=== PATIENT | male | born 1950 | race Two or more races ===

== ENCOUNTER 2025-09-08 08:24 | Inpatient (IN) | payer MEDICARE, MEDICAID ==
[2025-09-08] VITALS (10 sets, daily range): BP systolic 106; BP diastolic 32; PULSE 74–108; RESP 13–25; TEMP 98.3; O2SAT 94–98
[~2025-09-08] VITALS: Ht 175.3 cm; Wt 95.3 kg
--- NOTE | 2025-09-08 09:09 | ED.PDOC ---
SOB-HPI HPI Comments Mr. Ruiz is a 74 year old male with PMhx of hypertension, who presents today BIBA due to a syncopal episode at home. The patient states he woke up to go bathroom this morning when he states he had onset of dizziness, chills, "saw orange," and subsequently fell. He states he was conscious during this and did not hit his head. He states that for the last 5 weeks he has been symptoms including weakness, productive cough, progressively worsening shortness of breath on minimal exertion, orthopnea, anosmia, decreased appetite/fluid intake, and sharp chest wall bilateral chest wall pain described as sharp, non radiating, 7/10 intensity, aggravated by coughing and taking deep breaths.He denies loss of consciousness, head trauma, chest pain, abdominal pain, nausea, vomiting, abdominal pain, peripheral edema, and palpitations. Per EMS, on scene the patient was responsive, afebrile, tachycardic, and saturating 84% on RA for which he was started on 4L NC O2. On initial evaluation, the patient seems well while on NC, afebrile, tachycardic, saturating 87% on RA and 93% on 4L O2 NC. Chief Complaint: Syncope Time Seen by MD: 08:45 Information Source: Patient, Spouse Mode of Arrival: EMS Severity: Moderate Timing: Weeks Duration: Since onset Context: With Light Exertion PE Risk Factors: None History of: Recent URI Prehospital treatment: 12 Lead EKG, Oxygen Modifying Factors: Exertion Associated Signs and Symptoms: Cough, Nasal Congestion, Chest Pain Quality: Sharp Radiation: No Radiation Location: Chest (R), Chest (L) If cough with SOB: Productive Past Medical History PAST MEDICAL HISTORY: HTN Surgical History (Other): Shoulder surgery Family History Family History: Reviewed,noncontributory to illness Social History Smoker: Quit Less Than 1 Year (Patient states he smoked a pack a day for 50 years with cessation in April ) Alcohol: Denies ETOH Use Drugs: Denies Drug Use Lives In: Home Constitutional: reports: fatigue; denies: chills, diaphoresis, fever, malaise, sweats, weakness EENTM: reports: nasal discharge, nose congestion, others ([place] vision ); denies: blurred vision, double vision, mouth pain Respiratory: reports: cough, orthopnea, SOB at rest, SOB with excertion; denies: hemoptysis Cardiovascular: reports: syncope; denies: chest pain, dizzy spells, diaphoresis, Dyspnea on exertion, edema, irregular heart beat, left arm pain, lightheadedness, palpitations Gastrointestinal: reports: poor appetite, poor fluid intake; denies: abdomen distended, abdominal pain, blood streaked bowels, constipated, diarrhea, hematemesis, melena, nausea, rectal bleeding, vomiting Genitourinary: denies: burning, dysuria, flank pain, frequency, hematuria, incontinence, pain, urgency Neurological: denies: dizziness, fainting, headache, numbness, paresthesia, pre-existing deficit, seizure, weakness Musculoskeletal: reports: others (Chest wall pain ); denies: back pain, joint pain, joint swelling, muscle pain, muscle stiffness, neck pain Integumetry: denies: bruises, laceration, lesions, lumps, rash, wounds Physical Exam General Appearance: Mild Distress, Obese HEENT: Normal ENT Inspection, PERRL/EOMI, Pharynx Normal Neck: Full Range of Motion, Non-Tender, Normal Inspection Respiratory: Other ( Bilateral chest expansion, diffuse pain on palpation of chest wall mainly on sides, vesicular murmurs present in almost all lung loo, minor rales in bilateral lower loo ) Cardiovascular: No Edema, No Murmur, Tachycardia, Other (Peripheral pulses are present) Breast Exam: Deferred Gastrointestinal: Non Tender, Normal Bowel Sounds, Soft Genitalia: Deferred Pelvic: Deferred Rectal: Deferred Extremities: Normal capillary refill, Normal inspection, Normal range of motion, Non-tender, No pedal edema Neurologic: Alert, Normal Affect, Normal Mood Cerebellar Function: NOT DONE Reflexes: NOT DONE Skin: Normal Color Peripheral Pulses: 3+ dorsalis pedis (R), 3+ dorsalis pedis (L) Lymphatic: Other (No cervical adenopathy) Was a procedure done? Was a procedure done?: No Differential Dx Differential Diagnosis: Bronchitis, CHF, COPD, Myocardial infarction, Pneumonia, Pulmonary Embolism, Respiratory Distress Comments Syncope, sepsis, viral syndrome X-Ray, Labs, Meds, VS Vital Signs Date Time Temp Pulse Resp B/P (MAP) Pulse Ox O2 Delivery O2 Flow Rate FiO2 09/08/25 10:00 100 30 106/32 (56) 95 09/08/25 08:45 108 25 94 Nasal Cannula* 4 36 09/08/25 08:45 98.3 108 24 132/54 (80) 95 98.3 09/08/25 08:35 98.0 110 18 137/72 93 98.0 09/08/25 08:26 108 Lab Test 09/08/25 09:48 09/08/25 09:33 09/08/25 08:57 09/08/25 08:51 Range/Units Troponin I High Sensitivity 86 *H 69 *H </=54 ng/L POC Glucose 115 H 70-106 mg/dl Influenza Type A Antigen Pending Influenza Type B Antigen Pending SARS-CoV-2 Antigen (Rapid) Pending White Blood Count 11.9 H 4.4-10.8 10^3/uL Red Blood Count 4.63 4.5-5.90 10^6/uL Hemoglobin 15.0 13.5-17.5 g/dL Hematocrit 43.0 41.0-53.0 % Mean Corpuscular Volume 92.8 80.0-100.0 fL Mean Corpuscular Hemoglobin 32.5 H 28.0-32.0 pg Mean Corpuscular Hemoglobin Concent 35.0 32.0-36.0 g/dL Red Cell Distribution Width 14.0 11.8-14.3 % Platelet Count 178 140-450 10^3/uL Mean Platelet Volume 7.3 6.9-10.8 fL Neutrophils (%) (Auto) 73.4 37.0-80.0 % Lymphocytes (%) (Auto) 10.7 10.0-50.0 % Monocytes (%) (Auto) 5.5 0.0-12.0 % Eosinophils (%) (Auto) 9.5 H 0.0-7.0 % Basophils (%) (Auto) 0.9 0.0-2.0 % Neutrophils # (Auto) 8.7 H 1.6-8.6 10 ^3/uL Lymphocytes # (Auto) 1.3 0.4-5.4 10 ^3/uL Monocytes # (Auto) 0.6 0-1.3 10 ^3/uL Eosinophils # (Auto) 1.1 H 0-0.8 10 ^3/uL Basophils # (Auto) 0.1 0-0.2 10 ^3/uL Nucleated Red Blood Cells 0.2 % Sodium Level 145 136-145 mmol/L Potassium Level 3.3 L 3.5-5.1 mmol/L Chloride Level 101 98-107 mmol/L Carbon Dioxide Level 30 20-31 mmol/L Anion Gap 14 5-15 Blood Urea Nitrogen 32 H 9-23 mg/dL Creatinine 1.67 H 0.700-1.30 mg/dL Glomerular Filtration Rate Calc 43 >90 mL/min BUN/Creatinine Ratio 19.2 10.0-20.0 Serum Glucose 109 H 74-106 mg/dL Lactic Acid Level 2.0 0.4-2.0 mmol/L Calcium Level 12.9 H 8.7-10.4 mg/dL B-Type Natriuretic Peptide 74.31 0-100 pg/mL Current Medications Medications (Trade) Dose Ordered Sig/Keyana Route Start Time Stop Time Status Last Admin Sodium Chloride 500 ml @ 500 mls/hr Q1H ONCE IV 09/08/25 10:15 09/08/25 11:14 09/08/25 10:29 Ceftriaxone Sodium 50 ml @ 100 mls/hr ONCE ONCE IV 09/08/25 10:15 09/08/25 10:44 09/08/25 10:29 Potassium Chloride (Klor-Con Tablet) 20 meq ONCE ONCE PO 09/08/25 10:15 09/08/25 10:16 DC 09/08/25 10:29 Acetaminophen/ Hydrocodone Bitart (Raymond 5/325MG Tab) 1 tab ONCE ONCE PO 09/08/25 10:30 09/08/25 10:31 DC 09/08/25 10:31 Time of 1ST Reevaluation: 10:07 Reevaluation 1ST: Unchanged Patient Education/Counseling: Diagnosis, Treatment Family Education/Counseling: Diagnosis, Treatment Comments The patient presents today due to a syncopal episode with additional complaint of respiratory symptoms for 5 weeks On initial evaluation the patient is afebrile, tachycardic, tachypneic, saturating 87% on RA and 94% on 4L O2 NC Physical exam is positive for diffuse pain on chest wall palpation, mainly concentrated along bilateral sides, and mild rales on ausculation of bilateral lower lung loo CBC significant for leukocytosis with eosinophilia, BMP shows mild hypokalemia at 3.3 for which 20 mEq PO potassium was given, and creatinine 1.67 Initial troponins are 69, BNP is 74 Lactic acid is 2 Chest xray shows no acute intrapulmonary process Head CT has been ordered due to recent fall EKG shows sinus tachycardia, with minor ST depression in V4,5, and 6, with prolonged QTc of 653 Acetaminophen 650 mg PO was given due to pain and the patient was started on Ceftriaxone 1 g IV and Azithromycin 500 mg IV (which was subsequently DC'd due to prolonged QTc), and NS 500 cc bolus was given On reevaluation, the patient states he feels well on 4L O2 NC The patient will be admitted for further work up and monitoring. SEPSIS Sepsis Screen Date sepsis recognized/suspect: Sep 08, 2025 Time Sepsis recognized/suspect: 827 Recent Procedure: No On Antibiotic Therapy: No Respiratory Rate >20: No Heart Rate >90: Yes Temp<36 C (96.8 F) or >38.3 C: No SBP <90 or MAP <65 mmHG: No New Acute Mental Status Change: No Is the patient on CPAP, BIPAP,: No Physician Orders Electrocardigram (09/08/25 08:29) Urinalysis (09/08/25 08:39) Chest Portable (09/08/25 08:39) Head Without Contrast (09/08/25 08:39) Electrocardigram (09/08/25 08:39) Electrocardigram (09/08/25 09:39) Electrocardigram (09/08/25 11:39) Troponin-I Hs (09/08/25 11:39) Blood Culture (09/08/25 08:53) Covid19 Antigen Sophy (09/08/25 ) Rapid Influenza A&B (09/08/25 08:53) Sodium Chloride 0.9% (09/08/25 10:15) Ceftriaxone 1gm/50ml (Rocephin) (09/08/25 10:15) Azithromycin 500mg/ 250ml (Zithromax 50 (09/08/25 10:15) Vital Signs Date Time Temp Pulse Resp B/P (MAP) Pulse Ox O2 Delivery O2 Flow Rate FiO2 09/08/25 10:00 100 30 106/32 (56) 95 09/08/25 08:45 108 25 94 Nasal Cannula* 4 36 09/08/25 08:45 98.3 108 24 132/54 (80) 95 98.3 09/08/25 08:35 98.0 110 18 137/72 93 98.0 09/08/25 08:26 108 Laboratory Tests Test 09/08/25 08:51 Lactic Acid Level 2.0 mmol/L (0.4-2.0) White Blood Count 11.9 10^3/uL (4.4-10.8) H Medications Medications Dose Ordered Sig/Keyana Route Start Time Stop Time Status Last Admin Dose Admin Acetaminophen/ Hydrocodone Bitart 1 tab ONCE ONCE PO 09/08/25 10:30 09/08/25 10:31 DC 09/08/25 10:31 Ceftriaxone Sodium 50 ml @ 100 mls/hr ONCE ONCE IV 09/08/25 10:15 09/08/25 10:44 09/08/25 10:29 Potassium Chloride 20 meq ONCE ONCE PO 09/08/25 10:15 09/08/25 10:16 DC 09/08/25 10:29 Sodium Chloride 500 ml @ 500 mls/hr Q1H ONCE IV 09/08/25 10:15 09/08/25 11:14 09/08/25 10:29 Departure 1 Departure Time of Disposition: 10:17 Impression: Primary Impression: Syncope Additional Impression: Acute hypoxic respiratory failure Disposition: 30 STILL A PATIENT Admit to: Med Surg Condition: Stable Critical Care Note Critical Care Time?: No Stability Stability form required: No Heart Score Heart Score: Heart Score Response (Comments) Value History Slightly Suspicious 0 EKG Repolarization Disturb 1 Age >65 2 Risk Factors 1 or 2 risk factors 1 Troponin 1-2 x's Normal limit 1 Total 5 ELIDIA GRIGGS RESIDENT Sep 08, 2025 09:09
[2025-09-08 09:20] LABS: Hematocrit 43.0 % (41.0-53.0); Hemoglobin 15.0 g/dL (13.5-17.5); Mean Corpuscular Hemoglobin 32.5 pg (28.0-32.0); Mean Corpuscular Volume 92.8 fL (80.0-100.0); Nucleated Red Blood Cells % 0.2 %
--- NOTE | 2025-09-08 09:28 | DVH ---
XY CHEST PORTABLE, HISTORY: syncope COMPARISON: XR CHEST 2 VIEWS on DOS: 08/16/25 XR CHEST 2 VIEWS on DOS: 08/16/25 TECHNICAL DATA: 1 view of the chest was obtained. FINDINGS: Lines and tubes: None Cardiomediastinal silhouette: Prominent Pulmonary vasculature: normal Lung expansion: low Lung airspace: normal Lung interstitium: normal Pleura: normal Pneumothorax: no Bones: Unremarkable Other: no IMPRESSION: No acute intrathoracic abnormality.
[2025-09-08 09:29] LABS: Carbon Dioxide 30 mmol/L (20-31)
[2025-09-08 09:35] LABS: BUN/Creatinine Ratio 19.2 (10.0-20.0); Blood Urea Nitrogen 32 mg/dL (9-23); Calcium 12.9 mg/dL (8.7-10.4); Glucose 109 mg/dL (74-106); Potassium 3.3 mmol/L (3.5-5.1); Sodium 145 mmol/L (136-145)
[2025-09-08] MEDS: ACETAMINOPHEN 325 MG TAB PO ONE (09:45)
[2025-09-08 09:47] LABS: Anion Gap 14 (5-15); Chloride 101 mmol/L (98-107)
[2025-09-08] MEDS ORDERED: AZITHROMYCIN 500MG/250ML 250 ML IV ONE (10:15)
[2025-09-08] MEDS: POTASSIUM CHL 20 Meq TABLET PO ONE (10:29)
[2025-09-08] MEDS: SODIUM CHLORIDE 0.9% 500 ML IV ONE ×2 (10:29→14:52)
[2025-09-08] MEDS: HYDROcodone-ACET 5/325MG TAB PO ONE (10:31)
[2025-09-08] MEDS ORDERED: ACETAMINOPHEN 325 MG TAB PO PRN (11:00)
--- NOTE | 2025-09-08 11:32 | DVHHPRES ---
History of Present Illness Resident Creating Document: NEGRA AjERENE History of Present Illness This is a 74-year-old male with past medical history of hypertension, who presented to the ED with chief complaint of syncopal episode that occurred this morning at home. The patient reports that in the past two months has been having shortness of breath associated with cough with a lot of phlegm and sputum production whitish in color. The patient reports that has been visit the urgent care in July 27 and posteriorly in July was diagnosed with a bronchitis and sent home with oral antibiotics and steroids. Today, patient reports that he woke up in the morning went to the bathroom and while urinating he started feeling weak, shaking and his vision started looking everything orange. Shortly after that he passed out but recovered consciousness in less than 30 seconds and was able to recall the entire event. Patient was alert and oriented after the incident. Patient denied any hot sensation in the body, diaphoresis, nausea sensation, palpitations or any other symptoms prior to the syncopal episode. Patient states that this was the 1st time that he has such event. Patient states that he was supposed to see his wire web worker for the 1st time ( Dr. Rivero). The patient also reports that he has been feeling slight chest pain that comes and goes since June but denies any chest pain or discomfort at this time. Upon arrival to the ED, WBC was 11.9, hypokalemia and ISABEL with a creatinine of 1.67. EKG showed sinus tachycardia with slight ST-depression in V4, V5 and V6. Troponins came back slightly elevated at 69-89. We will order an echocardiogram to further evaluate LVEF since the patient states that has no past medical history of CHF or arrhythmias. Patient is currently on 3 L of oxygen through nasal cannula saturating 94%. (no oxygen requirement at home). Upon my examination, there is no wheezes or significant crackles on auscultation . Bilateral lower extremity have no edema at this time. We will admit the patient for further assessment and management. Home medications: Lisinopril 30 mg daily, hydrochlorothiazide 50 mg daily, potassium supplements Surgical history: Rotator cuff surgery in 2009 and tonsillectomy in 195 Social history: Denies alcohol consumption, drug intake. Patient does report that he used to smoke one pack of cigarettes a day for 50 years but quit on April of 2025 PCP: Dr. Rosales Cardiovascular: HTN Past Surgical History: Other (Rotator cuff surgery in the left shoulder in 2010), Tonsillectomy Family History: None Smoke: Quit ALCOHOL: none Drugs: None Lives: with Family Domestic Violence: Neg Review of Systems Constitutional: Yes: Weakness, Malaise; No: Fever, Chills, Sweats, Other Eyes: No: Pain, Vision change, Conjunctivae inflammation, Eyelid inflammation, Other, Redness ENT: No: Ear pain, Ear discharge, Nose pain, Nose discharge, Nose congestion, Mouth pain, Mouth swelling, Throat pain, Throat swelling, Other Respiratory: Cough, Dry, Shortness of breath, SOB with excertion, Sputum; No: Wheezing, Hemoptysis, Pleuritic Pain, Wheezing, Other Cardiovascular: No: Chest Pain, Palpitations, Orthopnea, Paroxysmal Noc. Dyspnea, Edema, Lt Headedness, Other Gastrointestinal: No: Nausea, Vomiting, Abdominal Pain, Diarrhea, Constipation, Melena, Hematochezia, Other Genitourinary: No Dysuria, No Frequency, No Incontinence, No Hematuria, No Retention, No Other Musculoskeletal: No: other, neck pain, shoulder pain, arm pain, back pain, hand pain, leg pain, foot pain Skin: No: Rash, Lesions, Jaundice, Bruising, Other Neurological: No: Weakness, Numbness, Incoordination, Change in speech, Confusion, Seizures, Other Allergies: Coded Allergies: NO KNOWN ALLERGIES (Unverified , 09/08/25) Medications Current Medications Medications Dose Ordered Sig/Keyana Route Start Time Stop Time Status Last Admin Dose Admin Acetaminophen 650 mg Q6HP PRN PO 09/08/25 11:00 UNV Acetaminophen/ Hydrocodone Bitart 1 tab Q4HP PRN PO 09/08/25 11:00 UNV Enoxaparin Sodium 40 mg DAILY SC 09/09/25 10:00 UNV Doxycycline Hyclate 100 ml @ 50 mls/hr BID IV 09/08/25 22:00 UNV Ceftriaxone Sodium 50 ml @ 100 mls/hr DAILY IV 09/09/25 10:00 UNV Guaifenesin/ Dextromethorphan 10 ml DAILY PO 09/08/25 13:00 UNV Levalbuterol HCl 1.25 mg Q6HR NEB 09/08/25 12:00 UNV Ipratropium [place] 0.5 mg Q6HR NEB 09/08/25 12:00 UNV Exam Vital Signs Vital Signs Date Time Temp Pulse Resp B/P (MAP) Pulse Ox O2 Delivery O2 Flow Rate FiO2 09/08/25 10:00 100 30 106/32 (56) 95 09/08/25 08:45 Nasal Cannula* 4 36 09/08/25 08:45 98.3 98.3 General Appearance: Alert, Oriented X3, Cooperative, mild distress HEENT: Atraumatic, PERRLA, EOMI, Mucous membr. moist/pink Respiratory: Clear to auscultation, Normal air movement Cardiovascular: Regular rate, Normal S1, Normal S2, No murmurs Abdominal: Normal bowel sounds, Soft, No tenderness, No hepatospenomegaly, No masses Extremities: No clubbing, No cyanosis, No edema, Normal pulses, No tenderness/swelling Skin: No rashes, No breakdown, No significant lesion Neuro: Normal gait, Normal speech, Strength at 5/5 X4 ext, Normal tone, Sensation intact, Cranial nerves 3-12 NL, Reflexes 2+ Psych/Mental Status: Mental status NL, Mood NL Labs/Xrays Labs Test 09/08/25 09:48 09/08/25 09:33 09/08/25 08:57 09/08/25 08:51 Range/Units Troponin I High Sensitivity 86 *H </=54 ng/L POC Glucose 115 H 70-106 mg/dl White Blood Count 11.9 H 4.4-10.8 10^3/uL Red Blood Count 4.63 4.5-5.90 10^6/uL Hemoglobin 15.0 13.5-17.5 g/dL Hematocrit 43.0 41.0-53.0 % Mean Corpuscular Volume 92.8 80.0-100.0 fL Mean Corpuscular Hemoglobin 32.5 H 28.0-32.0 pg Mean Corpuscular Hemoglobin Concent 35.0 32.0-36.0 g/dL Red Cell Distribution Width 14.0 11.8-14.3 % Platelet Count 178 140-450 10^3/uL Mean Platelet Volume 7.3 6.9-10.8 fL Neutrophils (%) (Auto) 73.4 37.0-80.0 % Lymphocytes (%) (Auto) 10.7 10.0-50.0 % Monocytes (%) (Auto) 5.5 0.0-12.0 % Eosinophils (%) (Auto) 9.5 H 0.0-7.0 % Basophils (%) (Auto) 0.9 0.0-2.0 % Neutrophils # (Auto) 8.7 H 1.6-8.6 10 ^3/uL Lymphocytes # (Auto) 1.3 0.4-5.4 10 ^3/uL Monocytes # (Auto) 0.6 0-1.3 10 ^3/uL Eosinophils # (Auto) 1.1 H 0-0.8 10 ^3/uL Basophils # (Auto) 0.1 0-0.2 10 ^3/uL Nucleated Red Blood Cells 0.2 % Sodium Level 145 136-145 mmol/L Potassium Level 3.3 L 3.5-5.1 mmol/L Chloride Level 101 98-107 mmol/L Carbon Dioxide Level 30 20-31 mmol/L Anion Gap 14 5-15 Blood Urea Nitrogen 32 H 9-23 mg/dL Creatinine 1.67 H 0.700-1.30 mg/dL Glomerular Filtration Rate Calc 43 >90 mL/min BUN/Creatinine Ratio 19.2 10.0-20.0 Serum Glucose 109 H 74-106 mg/dL Lactic Acid Level 2.0 0.4-2.0 mmol/L Calcium Level 12.9 H 8.7-10.4 mg/dL B-Type Natriuretic Peptide 74.31 0-100 pg/mL SEPSIS Sepsis Screen Date sepsis recognized/suspect: Sep 08, 2025 Time Sepsis recognized/suspect: 0845 Recent Procedure: No On Antibiotic Therapy: Yes Respiratory Rate >20: Yes Heart Rate >90: Yes Temp<36 C (96.8 F) or >38.3 C: No SBP <90 or MAP <65 mmHG: No New Acute Mental Status Change: No Is the patient on CPAP, BIPAP,: No Physician Orders Electrocardigram (09/08/25 08:29) Urinalysis (09/08/25 08:39) Chest Portable (09/08/25 08:39) Head Without Contrast (09/08/25 08:39) Electrocardigram (09/08/25 08:39) Electrocardigram (09/08/25 09:39) Electrocardigram (09/08/25 11:39) Troponin-I Hs (09/08/25 11:39) Blood Culture (09/08/25 08:53) Covid19 Antigen Sophy (09/08/25 ) Rapid Influenza A&B (09/08/25 08:53) Sodium Chloride 0.9% (09/08/25 10:15) Admit (09/08/25 10:57) Code Status (09/08/25 10:57) Vital Signs .PER UNIT PROTOCOL (09/08/25 10:57) Review Orders With Adm. (09/08/25 10:57) Encourage Activity As Tolerate (09/08/25 10:57) Regular Diet (09/08/25 Lunch) Pulse Oxymetry Assessment - 2 (09/08/25 10:57) Acetaminophen Tablet (Tylenol Tablet) (09/08/25 11:00) Notify Md Of Changes From Base (09/08/25 10:57) Advance Directive (09/08/25 10:57) Urinalysis (09/08/25 10:57) Complete Blood Count (09/09/25 04:00) Lipid Panel (09/08/25 10:57) Patient Condition (09/08/25 10:57) Allergies (09/08/25 10:57) Hydrocodone-Acet 5/325mg Tab ([place] 5/32 (09/08/25 11:00) Drug Screen (09/08/25 10:57) Hemoglobin A1c (09/08/25 10:57) Enoxaparin Sodium (Lovenox) (09/09/25 10:00) Electrocardigram (09/08/25 10:57) Comprehensive Metabolic Panel (09/09/25 04:00) Echo 2d Mode Cardiac Dop (09/08/25 10:57) Communication Order (09/08/25 11:04) Doxycycline 100mg/100ml (Vibramycin) (09/08/25 22:00) Ceftriaxone 1gm/50ml (Rocephin) (09/09/25 10:00) Throat Lozenges (Cepastat Lozenges) (09/08/25 11:15) Guaifenesin-Dextromet Liquid (Robitussin (09/08/25 13:00) Levalbuterol Hcl (Xopenex Medneb) (09/08/25 12:00) Ipratropium Medneb (Atrovent Medneb) (09/08/25 12:00) Vital Signs Date Time Temp Pulse Resp B/P (MAP) Pulse Ox O2 Delivery O2 Flow Rate FiO2 09/08/25 10:00 100 30 106/32 (56) 95 09/08/25 08:45 108 25 94 Nasal Cannula* 4 36 09/08/25 08:45 98.3 108 24 132/54 (80) 95 98.3 09/08/25 08:35 98.0 110 18 137/72 93 98.0 09/08/25 08:26 108 Laboratory Tests Test 09/08/25 08:51 Lactic Acid Level 2.0 mmol/L (0.4-2.0) White Blood Count 11.9 10^3/uL (4.4-10.8) H Medications Medications Dose Ordered Sig/Keyana Route Start Time Stop Time Status Last Admin Dose Admin Acetaminophen/ Hydrocodone Bitart 1 tab ONCE ONCE PO 09/08/25 10:30 09/08/25 10:31 DC 09/08/25 10:31 1 TAB Ceftriaxone Sodium 50 ml @ 100 mls/hr ONCE ONCE IV 09/08/25 10:15 09/08/25 10:44 DC 09/08/25 10:29 100 MLS/HR Potassium Chloride 20 meq ONCE ONCE PO 09/08/25 10:15 09/08/25 10:16 DC 09/08/25 10:29 20 MEQ Sodium Chloride 500 ml @ 500 mls/hr Q1H ONCE IV 09/08/25 10:15 09/08/25 11:14 09/08/25 10:29 500 MLS/HR Assessment/Plan Assessment/Plan Assessment/plan Acute hypoxic respiratory failure likely due to COPD exacerbation Possible Gram-positive/Gram-negative bacterial pneumonia Possible viral pneumonia Possible new onset Systolic/diastolic heart failure NSTEMI likely type 2/ 1? R/O PE/DVT Plan -initial EKG showed sinus tachycardia with slight ST-depression in V4, V5 and V6 -initial troponins were slightly elevated at 69-89 -Ordered echocardiogram -initial chest x-ray is grossly clear no significant consolidations at this time -start IV doxycycline -albuterol/ipratropium med nebs q.6 schedule -guaifenesin dextromethorphan daily, due to chronic cough -COVID and influenza still pending -cardiology consult -Ordered D-Dimer Goals of care discussed with the patient and at bedside, full code Plan discussed with Dr. Balderas Plan discussed with: Patient, Spouse My Orders Orders - GLORIA CHRISTINE Procedure Category Date Status Time Admit ADMIT 09/08/25 Transmitted 10:57 Code Status CODE 09/08/25 Transmitted 10:57 Vital Signs [facility] 09/08/25 In Process 10:57 Review Orders With YANA 09/08/25 In Process Adm. 10:57 Encourage Activity As YANA 09/08/25 In Process Tolerate 10:57 Regular Diet DIET 09/08/25 Transmitted Lunch Pulse Oxymetry RT 09/08/25 Transmitted Assessment - 2 10:57 Acetaminophen Tablet PHA 09/08/25 Logged (Tylenol Tablet) 11:00 Notify Of Changes [facility] 09/08/25 In Process From Base 10:57 Advance Directive [facility] 09/08/25 In Process 10:57 Urinalysis LAB 09/08/25 Logged 10:57 Complete Blood Count LAB 09/09/25 Verified 04:00 Lipid Panel LAB 09/08/25 In Process 10:57 Patient Condition ORDERS 09/08/25 Transmitted 10:57 Allergies [facility] 09/08/25 In Process 10:57 Hydrocodone-Acet PHA 09/08/25 Logged 5/325mg Tab ([place] 11:00 Drug Screen LAB 09/08/25 Logged 10:57 Hemoglobin A1c LAB 09/08/25 Logged 10:57 Enoxaparin Sodium PHA 09/09/25 Logged (Lovenox) 10:00 Electrocardigram EKG 09/08/25 Logged 10:57 Comprehensive LAB 09/09/25 Verified Metabolic Panel 04:00 Echo 2d Mode Cardiac US 09/08/25 Logged DOP 10:57 Communication Order ORDERS 09/08/25 Transmitted 11:04 Doxycycline PHA 09/08/25 Logged 100mg/100ml 22:00 Ceftriaxone 1gm/50ml PHA 09/09/25 Logged (Rocephin) 10:00 Throat Lozenges PHA 09/08/25 Logged (Cepastat Lozenges) 11:15 Guaifenesin-Dextromet PHA 09/08/25 Logged Liquid (Robitussin 13:00 Levalbuterol Hcl PHA 09/08/25 Transmitted (Xopenex Medneb) 12:00 Ipratropium Medneb PHA 09/08/25 Transmitted (Atrovent Medneb) 12:00 Date of Service: Sep 08, 2025 Billing Provider: RUPERTO BALDERAS MD Common Visit Codes: [id number] INP/OBS CARE (HIGH) Secondary Visit Codes: [id number] CARE PLAN 30 MINUTES GLORIA CHRISTINE RESIDENT Sep 08, 2025 11:32
[2025-09-08] MEDS: THROAT LOZENGES(CEPASTAT) MT ONE (11:43)
[2025-09-08] MEDS: DOXYCYCLINE 100MG/100ML 100 ML IV SCH (11:43)
[2025-09-08 11:52] LABS: COVID19 ANTIGEN SOFIA FIA NEGATIVE (NEGATIVE)
[2025-09-08] MEDS: LEVALBUTEROL HCL 1.25 MG/3 ML NEB NEB SCH (12:00)
[2025-09-08] MEDS: IPRATROPIUM BROM 0.5 MG/2.5ML INH SOL NEB SCH (12:00)
--- NOTE | 2025-09-08 12:02 | DVHSR ---
APPROVED REPORT EXAM: Two-dimensional and M-mode echocardiogram with Doppler and color Doppler. Blood Pressure: 106/32 mmHg INDICATION possible new onset CHF, eval LVEF RISK FACTORS Height: 69, Weight: 210 DIMENSIONS LVDd 5.8 (3.8-5.7cm) LA (2D) 4.5 (1.9-4.0cm) Aortic Root 4.5 (2.0-3.7cm) LVDs 4.1 (2.5-4.0cm) LA (MM) (1.9-4.0cm) Aortic Cusp Exc (1.5-2.0cm) EF (%) 55.0 (55-70%) Rt. Atrium (1.9-4.0cm) Asc. Aorta cm Mitral Valve Mitral Mitral Stenosis E/A ratio 0.0 2D MVA cm2 Aortic Valve Aortic Valve Aortic Stenosis V1 1.63m/s AO Mean GR. 10mmHg V2 2.14m/s AO Peak GR. 18mmHg LVOT Diameter 2.4 (1.8-2.4cm) Doppler MARIE 3.44cm2 AI P 1/2 Time 280.44ms Pulmonic Valve V2 1.31m/s Other Information Technically limited study due to body habitus, patient position and patient rhythm. Conclusion lvef 60% normal lvef hypokinetic lateral wall normal atria moderate aoritc regurg, pressure half time is closer to severe, clinical correlate or consider joselyn if indicated normal pericardium
--- NOTE | 2025-09-08 12:19 | DVH ---
CT HEAD WITHOUT CONTRAST Indication: syncope EXAM DATE: 09/08/2025 11:46 AM COMPARISON: None TECHNIQUE: CT of the head without intravenous contrast. RADIATION DOSE: CTDIvol: 69 mGy, DLP: 1366 mGy*cm FINDINGS: There is no intracranial hemorrhage. There is no extra-axial fluid, mass, mass effect or midline shift. The ventricles are midline and normal in size. Basilar cisterns are patent. There is mild global cerebral volume loss. Mild periventricular and subcortical white matter chronic microvascular ischemic changes. Mastoids well pneumatized. Right maxillary sinus disease and mucoperiosteal thickening.. Imaged portion of the orbits are unremarkable. IMPRESSION: No intracranial hemorrhage or mass effect. Mild global cerebral volume loss. Mild chronic microvascular ischemic changes. Right maxillary sinus disease.
[2025-09-08] MEDS ORDERED: guaiFENesin-DM 100/10mg/5ml SYR PO SCH (13:00)
--- NOTE | 2025-09-08 14:01 | DVHCONRES ---
Date Seen: Sep 08, 2025 Resident Creating Document: JAIDA GROSS RESIDENT Referring Physician dr Shaw Reason for Consultation NSTEMI History of Present Illness SAMMIE NAGEL is a 74-year-old male with past medical history of hypertension, who presented to the ED with chief complaint of syncopal episode that occurred this morning at home. The patient reports that in the past two months has been having shortness of breath associated with cough with a lot of phlegm and sputum production whitish in color. The patient reports that has been visit the urgent care in July 27 and posteriorly in July was diagnosed with a bronchitis and sent home with oral antibiotics and steroids. Today, patient reports that he woke up in the morning went to the bathroom and while urinating he started feeling weak, shaking and his vision started looking everything orange. Shortly after that he passed out but recovered consciousness in less than 30 seconds and was able to recall the entire event. Patient was alert and oriented after the incident. Patient denied any hot sensation in the body, diaphoresis, nausea sensation, palpitations or any other symptoms prior to the syncopal episode. Patient states that this was the 1st time that he has such event. Patient states that he was supposed to see his windchill administrator for the 1st time ( Dr. Rivero). The patient also reports that he has been feeling slight chest pain that comes and goes since June but denies any chest pain or discomfort at this time. Upon arrival to the ED, WBC was 11.9, hypokalemia and ISABEL with a creatinine of 1.67. EKG showed sinus tachycardia with slight ST-depression in V4, V5 and V6. Troponins came back slightly elevated at 69-89-123. Echocardiogram LVEF 60%, hypokinetic lateral wall, moderate AR. PMH: HTN, possible COPD PSH: Rotator cuff surgery, tonsillectomy Family history: Noncontributory Social history: Lives at home. Ex-smoker, denies alcohol and other drug abuse( Patient does report that he used to smoke one pack of cigarettes a day for 50 years but quit on April of 2025) Allergies: No known allergies Allergies: Coded Allergies: NO KNOWN ALLERGIES (Unverified , 09/08/25) Current Medications Current Medications Medications (Trade) Dose Ordered Sig/Keyana Route PRN Reason Start Time Stop Time Status Last Admin Acetaminophen (Tylenol Tablet) 650 mg Q6HP PRN PO PAIN SCALE 1-3 OR TEMP>100.4 09/08/25 11:00 Acetaminophen/ Hydrocodone Bitart ([place] 5/325MG Tab) 1 tab Q4HP PRN PO MODERATE PAIN (4-6 PAIN SCALE) 09/08/25 11:00 Enoxaparin Sodium (Lovenox) 40 mg DAILY SC 09/09/25 10:00 Doxycycline Hyclate 100 ml @ 50 mls/hr BID IV 09/08/25 11:38 09/08/25 11:43 Ceftriaxone Sodium 50 ml @ 100 mls/hr DAILY@0900 IV 09/09/25 09:00 Guaifenesin/ Dextromethorphan (Robitussin-Dm Liquid) 10 ml DAILY PO 09/08/25 13:00 Hold Levalbuterol HCl (Xopenex Medneb) 1.25 mg Q6HR NEB 09/08/25 12:00 09/08/25 13:35 Ipratropium [place] (Atrovent Medneb) 0.5 mg Q6HR NEB 09/08/25 12:00 09/08/25 13:36 Review of Systems Patient seen and examined at the bedside. Patient is currently reporting sh ortness of breath and mild chest pain, rest of ROS is negative Vital Signs Vital Signs Date Time Temp Pulse Resp B/P (MAP) Pulse Ox O2 Delivery O2 Flow Rate FiO2 09/08/25 13:48 93 24 96 09/08/25 12:00 139/54 (82) 09/08/25 11:20 98.3 4.0 36 98.3 09/08/25 11:19 Nasal Cannula Physical Exam Pt is lying on bed General Appearance: Alert, Oriented X3, Cooperative, Not in acute distress HEENT: Atraumatic, Mucous membranes moist/pink Respiratory: Clear to auscultation, Normal air movement, No added sounds Cardiovascular: Regular rate, Normal S1, Normal S2, No murmurs Abdominal: Active bowel sounds, Soft, no distention, no tenderness Extremities: No edema, Normal pulses, No tenderness/swelling Skin: No Significant rash, except past surgical scars Neuro: Normal speech, sensorimotor deficits none Psych/Mental Status: Mental status NL, Mood NL Nurse was there as softball player during examination Labs/Diagnostic Data Labs Test 09/08/25 13:21 09/08/25 12:07 09/08/25 09:48 09/08/25 09:33 Range/Units Troponin I High Sensitivity 123 *H </=54 ng/L POC Glucose 115 H 70-106 mg/dl Test 09/08/25 08:57 09/08/25 08:51 Range/Units Influenza Type A Antigen Negative Negative Influenza Type B Antigen Negative Negative SARS-CoV-2 Antigen (Rapid) Negative NEGATIVE White Blood Count 11.9 H 4.4-10.8 10^3/uL Red Blood Count 4.63 4.5-5.90 10^6/uL Hemoglobin 15.0 13.5-17.5 g/dL Hematocrit 43.0 41.0-53.0 % Mean Corpuscular Volume 92.8 80.0-100.0 fL Mean Corpuscular Hemoglobin 32.5 H 28.0-32.0 pg Mean Corpuscular Hemoglobin Concent 35.0 32.0-36.0 g/dL Red Cell Distribution Width 14.0 11.8-14.3 % Platelet Count 178 140-450 10^3/uL Mean Platelet Volume 7.3 6.9-10.8 fL Neutrophils (%) (Auto) 73.4 37.0-80.0 % Lymphocytes (%) (Auto) 10.7 10.0-50.0 % Monocytes (%) (Auto) 5.5 0.0-12.0 % Eosinophils (%) (Auto) 9.5 H 0.0-7.0 % Basophils (%) (Auto) 0.9 0.0-2.0 % Neutrophils # (Auto) 8.7 H 1.6-8.6 10 ^3/uL Lymphocytes # (Auto) 1.3 0.4-5.4 10 ^3/uL Monocytes # (Auto) 0.6 0-1.3 10 ^3/uL Eosinophils # (Auto) 1.1 H 0-0.8 10 ^3/uL Basophils # (Auto) 0.1 0-0.2 10 ^3/uL Nucleated Red Blood Cells 0.2 % Sodium Level 145 136-145 mmol/L Potassium Level 3.3 L 3.5-5.1 mmol/L Chloride Level 101 98-107 mmol/L Carbon Dioxide Level 30 20-31 mmol/L Anion Gap 14 5-15 Blood Urea Nitrogen 32 H 9-23 mg/dL Creatinine 1.67 H 0.700-1.30 mg/dL Glomerular Filtration Rate Calc 43 >90 mL/min BUN/Creatinine Ratio 19.2 10.0-20.0 Serum Glucose 109 H 74-106 mg/dL Hemoglobin A1c 5.5 <5.7 % A1C Lactic Acid Level 2.0 0.4-2.0 mmol/L Calcium Level 12.9 H 8.7-10.4 mg/dL B-Type Natriuretic Peptide 74.31 0-100 pg/mL Assessment NSTEMI likely type 2 Acute hypoxic respiratory failure Possible COPD exacerbation Possible G+/- PNA Ruled out structural heart disease Plan/recommendations We will continue with the following plan/recommendations (): Echocardiogram LVEF 60%, hypokinetic lateral wall, moderate AR EKG showed sinus tachycardia with slight ST-depression in V4, V5 and V6 [id number] Given risk factors and elevated troponins we will schedule with Cardiolite stress test on next availability DVT/PE PPX Rest of management as per primary team Case discussed with the Dr. Vora Plan discussed with: Patient Date of Service: Sep 08, 2025 Billing Provider: LYNNE BECKER Sr., MD Common Visit Codes: [id number] CARE 30-74 MIN JAIDA GROSS RESIDENT Sep 08, 2025 14:00
--- NOTE | 2025-09-08 15:12 | DVH ---
Bilateral lower extremity venous duplex Clinical History: RULE OUT DVT, ELEVATED D-DIMER Comparison: None Technique: Duplex Doppler evaluation of the deep venous systems of both lower extremities from the common femoral veins to the popliteal veins including color Doppler and spectral/pulsed waveform analysis was performed. Findings: RIGHT SIDE: The common femoral vein demonstrates appropriate compressibility and waveform variability. There is compressibility/patency of the great saphenous vein at the proximal thigh. The femoral vein demonstrates appropriate compressibility and waveform variability. The deep femoral vein demonstrates appropriate compressibility and waveform variability. The popliteal vein demonstrates appropriate compressibility and waveform variability. There is normal compressibility at the tibioperoneal trunk. LEFT SIDE: The common femoral vein demonstrates appropriate compressibility and waveform variability. There is compressibility/patency of the great saphenous vein at the proximal thigh. The femoral vein demonstrates appropriate compressibility and waveform variability. The deep femoral vein demonstrates appropriate compressibility and waveform variability. The popliteal vein demonstrates appropriate compressibility and waveform variability. There is normal compressibility at the tibioperoneal trunk. Impression: 1. No right or left femoropopliteal venous thrombosis. 2. Techs comments negative for DVT 3. Thrombus possibly seen in LLE SSV
[2025-09-08] MEDS: IOHEXOL 350 MG/ML 100ML IJ ONE (15:53)
[2025-09-08] MEDS: HYDROcodone-ACET 5/325MG TAB PO PRN (15:53)
[2025-09-08 16:41] LABS: Cholesterol 203 mg/dL (< 200); HDL Cholesterol 55 mg/dL (40-59); Triglycerides 181 mg/dL (< 150)
--- NOTE | 2025-09-08 16:54 | DVHINCON2 ---
Date of service: Sep 08, [address] Shaw Reason for Consultation NSTEMI History of Present Illness This is a 74-year-old male with a past medical history of hypertension, who presented to the ED with a complaint of syncopal episode that occurred this morning at home. The patient reports that in the past two months has been having shortness of breath associated with cough with a lot of phlegm and sputum production whitish in color. The patient reports that has been visit the urgent care on July 27 and posteriorly in July was diagnosed with a bronchitis and sent home with oral antibiotics and steroids. Today, patient reports that he woke up in the morning went to the bathroom and while urinating he started feeling weak, shaking and his vision started looking everything o range. Shortly after that he passed out but recovered consciousness in less than 30 seconds and was able to recall the entire event. Patient was alert and oriented after the incident. Patient denied any hot sensation in the body, diaphoresis, nausea sensation, palpitations or any other symptoms prior to the syncopal episode. Patient states that this was the 1st time that he has such event. Patient states that he was supposed to see his coupling machine operator for the 1st time (Dr. Rivero). The patient also reports that he has been feeling slight chest pain that comes and goes since June but denies any chest pain or discomfort at this time. Upon arrival to the ED, WBC was 11.9, hypokalemia and ISABEL with a creatinine of 1.67. EKG showed sinus tachycardia with slight ST- depression in V4, V5 and V6. Troponins came back slightly elevated at 69-89-123. Echocardiogram LVEF 60%, hypokinetic lateral wall, moderate AR. Patient was admitted to the hospital. I am asked to consult on this patient. Allergies: Coded Allergies: NO KNOWN ALLERGIES (Unverified , 09/08/25) Current Medications Current Medications Medications (Trade) Dose Ordered Sig/Keyana Route PRN Reason Start Time Stop Time Status Last Admin Acetaminophen (Tylenol Tablet) 650 mg Q6HP PRN PO PAIN SCALE 1-3 OR TEMP>100.4 09/08/25 11:00 Acetaminophen/ Hydrocodone Bitart ([place] 5/325MG Tab) 1 tab Q4HP PRN PO MODERATE PAIN (4-6 PAIN SCALE) 09/08/25 11:00 Enoxaparin Sodium (Lovenox) 40 mg DAILY SC 09/09/25 10:00 Doxycycline Hyclate 100 ml @ 50 mls/hr BID IV 09/08/25 11:38 09/08/25 11:43 Ceftriaxone Sodium 50 ml @ 100 mls/hr DAILY@0900 IV 09/09/25 09:00 Guaifenesin/ Dextromethorphan (Robitussin-Dm Liquid) 10 ml DAILY PO 09/08/25 13:00 Hold Levalbuterol HCl (Xopenex Medneb) 1.25 mg Q6HR NEB 09/08/25 12:00 09/08/25 13:35 Ipratropium [place] (Atrovent Medneb) 0.5 mg Q6HR NEB 09/08/25 12:00 09/08/25 13:36 Review of Systems Patient seen and examined at the bedside. Patient is currently reporting shortness of breath and mild chest pain, rest of ROS is negative Vital Signs Vital Signs Date Time Temp Pulse Resp B/P (MAP) Pulse Ox O2 Delivery O2 Flow Rate FiO2 09/08/25 13:48 93 24 96 09/08/25 12:00 139/54 (82) 09/08/25 11:20 98.3 4.0 36 98.3 09/08/25 11:19 Nasal Cannula Physical Exam GENERAL: Alert and oriented x 3. No acute distress. EYES: PERRL, EOMI. Anicteric. HENT: Moist mucous membranes. LUNGS: Clear to auscultation bilaterally. CARDIOVASCULAR: Regular rate and rhythm. ABDOMEN: Soft, nontender and nondistended. EXTREMITIES: No edema. NEUROLOGIC: No focal neurological deficits. SKIN: Warm, dry. Past surgical scars. Labs/Diagnostic Data Labs Test 09/08/25 13:21 09/08/25 12:07 09/08/25 09:48 09/08/25 09:33 Range/Units D-Dimer, Quantitative > 35.20 H 0.0-0.49 mg/L FEU Magnesium Level 2.0 1.6-2.6 mg/dL Thyroid Stimulating Hormone (TSH) 0.28 L 0.55-4.78 uIU/mL Troponin I High Sensitivity 123 *H </=54 ng/L POC Glucose 115 H 70-106 mg/dl Test 09/08/25 08:57 09/08/25 08:51 Range/Units Influenza Type A Antigen Negative Negative Influenza Type B Antigen Negative Negative SARS-CoV-2 Antigen (Rapid) Negative NEGATIVE White Blood Count 11.9 H 4.4-10.8 10^3/uL Red Blood Count 4.63 4.5-5.90 10^6/uL Hemoglobin 15.0 13.5-17.5 g/dL Hematocrit 43.0 41.0-53.0 % Mean Corpuscular Volume 92.8 80.0-100.0 fL Mean Corpuscular Hemoglobin 32.5 H 28.0-32.0 pg Mean Corpuscular Hemoglobin Concent 35.0 32.0-36.0 g/dL Red Cell Distribution Width 14.0 11.8-14.3 % Platelet Count 178 140-450 10^3/uL Mean Platelet Volume 7.3 6.9-10.8 fL Neutrophils (%) (Auto) 73.4 37.0-80.0 % Lymphocytes (%) (Auto) 10.7 10.0-50.0 % Monocytes (%) (Auto) 5.5 0.0-12.0 % Eosinophils (%) (Auto) 9.5 H 0.0-7.0 % Basophils (%) (Auto) 0.9 0.0-2.0 % Neutrophils # (Auto) 8.7 H 1.6-8.6 10 ^3/uL Lymphocytes # (Auto) 1.3 0.4-5.4 10 ^3/uL Monocytes # (Auto) 0.6 0-1.3 10 ^3/uL Eosinophils # (Auto) 1.1 H 0-0.8 10 ^3/uL Basophils # (Auto) 0.1 0-0.2 10 ^3/uL Nucleated Red Blood Cells 0.2 % Sodium Level 145 136-145 mmol/L Potassium Level 3.3 L 3.5-5.1 mmol/L Chloride Level 101 98-107 mmol/L Carbon Dioxide Level 30 20-31 mmol/L Anion Gap 14 5-15 Blood Urea Nitrogen 32 H 9-23 mg/dL Creatinine 1.67 H 0.700-1.30 mg/dL Glomerular Filtration Rate Calc 43 >90 mL/min BUN/Creatinine Ratio 19.2 10.0-20.0 Serum Glucose 109 H 74-106 mg/dL Hemoglobin A1c 5.5 <5.7 % A1C Lactic Acid Level 2.0 0.4-2.0 mmol/L Calcium Level 12.9 H 8.7-10.4 mg/dL B-Type Natriuretic Peptide 74.31 0-100 pg/mL Assessment NSTEMI likely type 2. Acute hypoxic respiratory failure. Possible COPD exacerbation. Possible G+/- PNA. Ruled out structural heart disease. Plan/Recommendation I agree with your ongoing assessment and care of plan. Patient has been seen by Goran Meléndez Resident on my behalf, we have discussed the plan with the patient. Echocardiogram LVEF 60%, hypokinetic lateral wall, moderate AR. EKG showed sinus tachycardia with slight ST-depression in V4, V5 and V6. Troponins 69-89-123. Given risk factors and elevated troponins we will schedule with Cardiolite stress test on next availability. DVT/PE PPX. Rest of management as per primary team. Additional plan as per the hospital course. Plan discussed with: Patient QAMAR WALTON MD Sep 08, 2025 14:10
--- NOTE | 2025-09-08 16:54 | DVH ---
CLINICAL HISTORY: rule out PE, elevated D-Dimer TECHNIQUE: CT angiogram of the chest was performed with and without intravenous contrast. 3D reconstructed MIP images were created and archived on the PACS system under concurrent radiologist supervision. This exam was performed according to our departmental dose optimization program. Up-to-date CT equipment and radiation dose reduction techniques are utilized as appropriate. CTDI 28 DLP 1048 COMPARISON: None FINDINGS: Chest: There was adequate opacification of the pulmonary artery tree. However, evaluation is limited due to breathing artifact. There is no filling defect to suggest acute pulmonary embolism. The thoracic aorta is normal in course and caliber. There are a few aortic valvular calcifications. There are minimal aortic arch atherosclerotic calcifications. The heart is mildly enlarged in size. No pericardial effusion is seen. No enlarged mediastinal, hilar, or axillary lymph node is present. The central airways are patent. There is moderate centrilobular emphysema. There is no suspicious pulmonary nodule or area of consolidation. There is mild right and moderate left lower lobe atelectasis. There is a 3.8 cm right lower lobe air-filled cavity. There is no pleural effusion present. Other: The visualized upper abdomen demonstrates a distended gallbladder containing numerous peripherally calcified stones. The common duct is dilated, measuring 13 mm. There are innumerable lytic lesions throughout the imaged skeletal structures. IMPRESSION: Limited exam with no evidence for acute pulmonary embolism. No aortic dissection. Moderate left lower lobe atelectasis. 3.8 cm right lower lobe air-filled cavity. Cholelithiasis with dilated 13 mm common duct. Please correlate with laboratory values and consider MRCP if warranted. Innumerable lytic lesions throughout the imaged skeletal structures. Differential includes multiple myeloma, metastatic disease, and an abnormal a metabolic process.
[2025-09-09] VITALS (16 sets, daily range): BP systolic 128–155; BP diastolic 59–84; PULSE 60–105; RESP 16–20; TEMP 97–98.7; O2SAT 92–99
[2025-09-09 01:56] LABS: Urine Protein, UAD 1+ (Negative)
[2025-09-09 01:58] LABS: Opiate Scree,Urine Neg (NEGATIVE)
[2025-09-09 02:02] LABS: Amphetamine Screen, Urine Neg (NEGATIVE); Barbiturate Scree,Urine Neg (NEGATIVE); Benzodiazephine Screen, Urine Neg (NEGATIVE); Cannabinoid Screen, Urine Neg (NEGATIVE); Cocaine Screen, Urine Neg (NEGATIVE); Phencyclidine Screen, Urine Neg (NEGATIVE)
[2025-09-09] MEDS: REGADENOSON 0.4 MG/5 ML SYRG IV ONE ×2 (08:23→08:24)
[2025-09-09 08:28] LABS: Hematocrit 38.5 % (41.0-53.0); Hemoglobin 13.7 g/dL (13.5-17.5); Mean Corpuscular Hemoglobin 32.7 pg (28.0-32.0); Mean Corpuscular Volume 92.0 fL (80.0-100.0); Nucleated Red Blood Cells % 0.1 %
[2025-09-09] MEDS: ENOXAPARIN SOD 40 MG/0.4 ML SYRINGE SC SCH (08:33)
[2025-09-09 08:49] LABS: Alanine Aminotransferase 21 U/L (7-40); Albumin 3.9 g/dL (3.2-4.8); Anion Gap 11 (5-15); BUN/Creatinine Ratio 22.9 (10.0-20.0); Bilirubin, Total 1.1 mg/dL (0.2-1.0); Carbon Dioxide 31 mmol/L (20-31); Chloride 104 mmol/L (98-107); Glucose 88 mg/dL (74-106); Total Protein 6.9 g/dL (5.7-8.2)
[2025-09-09 08:50] LABS: Alkaline Phosphatase 426 U/L (46-116); Blood Urea Nitrogen 32 mg/dL (9-23); Calcium 12.2 mg/dL (8.7-10.4); Potassium 3.4 mmol/L (3.5-5.1); Sodium 146 mmol/L (136-145)
[2025-09-09 09:12] LABS: Free T3 3.51 pg/mL (2.3-4.2); Free T4 (Free Thyroxine) 1.24 ng/dL (0.89-1.76)
[2025-09-09] MEDS: ERGOCALCIFEROL 50,000 UNIT(1.25MG) CAP PO SCH (10:29)
[2025-09-09] MEDS: POTASSIUM EFFERVESENT TAB 25 MEQ PO ONE (10:30)
--- NOTE | 2025-09-09 16:39 | DVHPN2 ---
Progress Note Date Seen: Sep 09, 2025 Resident Creating Document: JAIDA GROSS RESIDENT Medical Necessity Reason Pt with a Central, PICC or Fol: No Subjective Review of Systems Patient seen and examined at the bedside. Patient is currently reporting shortness of breath and mild chest pain, rest of ROS is negative. Objective vital signs Vital Sign Date Time Temp Pulse Resp B/P (MAP) Pulse Ox O2 Delivery O2 Flow Rate FiO2 09/09/25 12:47 97.6 96 17 142/59 (86) 94 97.6 09/09/25 11:55 Nasal Cannula* 3 32 Total Intake and Output 09/08/25 09/08/25 09/09/25 15:00 23:00 07:00 Intake Total 650 ml 0 ml Output Total 300 ml Balance 650 ml -300 ml medications Current Medications Medications Dose Ordered Sig/Keyana Route Start Time Stop Time Status Last Admin Dose Admin Acetaminophen 650 mg Q6HP PRN PO 09/08/25 11:00 Acetaminophen/ Hydrocodone Bitart 1 tab Q4HP PRN PO 09/08/25 11:00 09/09/25 15:03 1 TAB Enoxaparin Sodium 40 mg DAILY SC 09/09/25 10:00 09/09/25 08:33 40 MG Doxycycline Hyclate 100 ml @ 50 mls/hr BID IV 09/08/25 11:38 09/09/25 08:33 50 MLS/HR Ceftriaxone Sodium 50 ml @ 100 mls/hr DAILY@0900 IV 09/09/25 09:00 09/09/25 08:33 100 MLS/HR Guaifenesin/ Dextromethorphan 10 ml DAILY PO 09/08/25 13:00 Hold Levalbuterol HCl 1.25 mg Q6HR NEB 09/08/25 12:00 09/09/25 11:52 1.25 MG Ipratropium [place] 0.5 mg Q6HR NEB 09/08/25 12:00 09/09/25 11:52 0.5 MG Ergocalciferol 50,000 unit Q7D PO 09/09/25 09:30 09/09/25 10:29 50,000 UNIT Examination Pt is lying on bed General Appearance: Alert, Oriented X3, Cooperative, Not in acute distress HEENT: Atraumatic, Mucous membranes moist/pink Respiratory: Clear to auscultation, Normal air movement, No added sounds Cardiovascular: Regular rate, Normal S1, Normal S2, No murmurs Abdominal: Active bowel sounds, Soft, no distention, no tenderness Extremities: No edema, Normal pulses, No tenderness/swelling Skin: No Significant rash, except past surgical scars Neuro: Normal speech, sensorimotor deficits none Psych/Mental Status: Mental status NL, Mood NL Nurse was there as silver solderer during examination laboratory and microbiology Laboratory Tests 09/09/25 07:42 Test 09/09/25 07:42 Range/Units Serum Glucose 88 74-106 mg/dL Microbiology Date/Time Source Procedure Growth Status 09/08/25 09:10 Blood Blood Culture - Preliminary NO GROWTH AFTER 24 HOURS OF INCUBATION. Resulted Labs and/or images reviewed: Labs reviewed by me, Image(s) reviewed by me Problem List/Assessment/Plan Problem List/Assessment/Plan NSTEMI likely type 2 Acute hypoxic respiratory failure sec to below Possible COPD exacerbation Possible G+/- PNA Ruled out structural heart disease Plan/recommendations We will continue with the following plan/recommendations (): Echocardiogram LVEF 60%, hypokinetic lateral wall, moderate AR EKG showed sinus tachycardia with slight ST-depression in V4, V5 and V6 [id number] Cardiolite stress test on next availability DVT/PE PPX Rest of management as per primary team Case discussed with the Dr. Walton Plan discussed with: Patient Date of Service: Sep 09, 2025 Billing Provider: QAMAR WALTON MD Common Visit Codes: [id number] CARE 30-74 MIN JAIDA GROSS Sep 09, 2025 16:39 QAMAR WALTON MD Sep 09, 2025 21:08
[2025-09-09 17:15] LABS: INR 1.25 (0.9-1.15); Partial Thromboplastin Time 36.9 SEC (24.5-34.5); Prothrombin Time 13.0 sec (9.3-11.8)
--- NOTE | 2025-09-09 17:39 | DVH ---
ULTRASOUND ABDOMEN, LIMITED RIGHT UPPER QUADRANT: REASON FOR EXAM: Dilated common bile duct TECHNIQUE: Real-time sector scans in the transverse and longitudinal planes were obtained through the right upper quadrant of the abdomen. FINDINGS: The liver is within normal limits for size. The liver parenchyma appears mildly echogenic. There is hepatopetal flow in the portal vein. There is no intrahepatic biliary ductal dilatation. The common bile duct measures 9 mm. The gallbladder is filled with shadowing stones. The gallbladder wall appears thickened at 4 mm. There is no pericholecystic edema identified. There is no sonographic Mccollum's sign. The pancreas is obscured by bowel gas. The right kidney measures 10.5 cm. No hydronephrosis or nephrolithiasis is identified. There is no evidence of right renal mass or cyst. The visualized portions of the abdominal aorta demonstrate no evidence of aneurysmal dilatation. The visualized inferior vena cava is unremarkable. There is no free fluid identified in the right upper quadrant. IMPRESSION: The gallbladder is filled with shadowing stones. Gallbladder wall thickening. No sonographic mccollum's sign. The common bile duct is mildly dilated at 9 mm. Recommend further evaluation with MRCP. Mildly echogenic liver parenchyma. This may be secondary to steatosis or another diffuse hepatic process. Correlate clinically and with liver function tests.
--- NOTE | 2025-09-09 20:37 | DVHPNRES ---
Progress Note Date Seen: Sep 09, 2025 Resident Creating Document: JESSICA MCQUEEN RESIDENT Medical Necessity Reason Pt with a Central, PICC or Fol: No Subjective Review of Systems Reynaldo Vazquez is a 74-year old male with past medical history of hypertension who presented to the ED after a syncopal episode. The patient reported having shortness of breath and cough with sputum production, whitish in color since the last 8-9 weeks. He reported that the shortness of breath increased on lying down and became better on sitting up. The patient reported going to the urgent care for the same, when he was told he has bronchitis and was sent home on oral antibiotics and steroids. He was due to see Dr. Rivero, screen printing cloth spreader for his 1st appointment with him yesterday. He reports feeling weak, dizzy and losing consciousness while urinating but recovered consciousness within 30 seconds and was able to recall the entire event. He mentions having decreased appetite in the last 1 week. He denied any chest pain, fever, chills or weight loss. He is currently on 3 L of oxygen through nasal cannula. Troponins were slightly elevated at 69-89. Echo showed LVEF 60% with moderate AR. Cardiolite stress test was done, pending report. Past medical history: Hypertension Past surgical history: Tonsillectomy, rotator cuff surgery on the left side in 2009 Social & Personal history: Lives at home with family Smokin pack-year history, stopped smoking in April 2025 Alcohol: Denies Drugs: Denies Allergies: No known allergies Patient seen and examined at bedside. Patient is alert and oriented to time, place person and responding to all questions. The patient mentions having weakness and malaise. Eyes: No Pain, No Vision change, No Conjunctivae inflammation, No Eyelid inflammation ENT: No Ear pain, No Ear discharge, No Nose pain, No Nose discharge, No Nose congestion, No Mouth pain, No Mouth swelling, No Throat pain, No Throat swelling Cardiovascular: No Chest Pain, No Palpitations, No Orthopnea, No Paroxysmal No Dyspnea, No Edema, No Lt Headedness Respiratory: Cough with sputum,Shortness of breath,SOB with exertion, No Wheezing, No Hemoptysis, No Pleuritic Pain Gastrointestinal: No Nausea, No Vomiting, No Abdominal Pain, No Diarrhea, No Constipation, No Melena, No Hematochezia Genitourinary: No Dysuria, No Frequency, No Incontinence, No Hematuria, No Retention Objective vital signs Vital Sign Date Time Temp Pulse Resp B/P (MAP) Pulse Ox O2 Delivery O2 Flow Rate FiO2 09/09/25 19:28 83 18 97 09/09/25 19:18 Nasal Cannula 3.0 09/09/25 19:18 32 09/09/25 16:54 98.7 140/64 (89) 98.7 Total Intake and Output 09/08/25 09/08/25 09/09/25 15:00 23:00 07:00 Intake Total 650 ml 0 ml Output Total 300 ml Balance 650 ml -300 ml medications Current Medications Medications Dose Ordered Sig/Keyana Route Start Time Stop Time Status Last Admin Dose Admin Acetaminophen 650 mg Q6HP PRN PO 09/08/25 11:00 Acetaminophen/ Hydrocodone Bitart 1 tab Q4HP PRN PO 09/08/25 11:00 09/09/25 15:03 1 TAB Enoxaparin Sodium 40 mg DAILY SC 09/09/25 10:00 09/09/25 08:33 40 MG Doxycycline Hyclate 100 ml @ 50 mls/hr BID IV 09/08/25 11:38 09/09/25 08:33 50 MLS/HR Ceftriaxone Sodium 50 ml @ 100 mls/hr DAILY@0900 IV 09/09/25 09:00 09/09/25 08:33 100 MLS/HR Guaifenesin/ Dextromethorphan 10 ml DAILY PO 09/08/25 13:00 Hold Levalbuterol HCl 1.25 mg Q6HR NEB 09/08/25 12:00 09/09/25 19:18 1.25 MG Ipratropium [place] 0.5 mg Q6HR NEB 09/08/25 12:00 09/09/25 19:18 0.5 MG Ergocalciferol 50,000 unit Q7D PO 09/09/25 09:30 09/09/25 10:29 50,000 UNIT Examination General Appearance: Cooperative. Well developed. Well nourished. NAD Head Exam: Normal inspection Neck Exam: Normal inspection. Non-tender. Normal alignment Pulmonary/Respiratory: Chest non-tender. Clear bilateral breath sounds, no crackles, no wheezing. Cardiovascular/Chest: Regular rate and rhythm. No murmurs. No JVD. Peripheral Pulses: 2+ Radial (R). 2+ Radial (L). 2+ Pedal (R). 2+ Pedal (L) Abdominal Exam: Normal bowel sounds. Soft. normal abdomen, no visible veins, Nontender. No hepatospenomegaly. No masses Ankle Exam: Negative ankle edema Lower extremities: Negative lower extremity edema Neuro/Mental Status: A&O x4. Coherent. Thoughts/Psych: Normal thought pattern. Appropriate mood and affect. Good judgement and insight Skin Exam: Normal inspection. Normal color. Warm. Dry laboratory and microbiology Laboratory Tests 09/09/25 07:42 Test 09/09/25 07:42 Range/Units Serum Glucose 88 74-106 mg/dL Microbiology Date/Time Source Procedure Growth Status 09/08/25 09:10 Blood Blood Culture - Preliminary NO GROWTH AFTER 24 HOURS OF INCUBATION. Resulted Labs and/or images reviewed: Labs reviewed by me, Image(s) reviewed by me Problem List/Assessment/Plan Problem List/Assessment/Plan # Acute hypoxic respiratory failure, likely due to COPD exacerbation, on 3 L by nasal canula # Possible acute pneumonia, likely bacterial, Gram-positive/Gram-negative # Possible multiple myeloma # Possible PE, ruled out # NSTEMI, likely type 2 -D-dimer >35.2 -CT angio- negative for PE, cholelithiasis, dilated common duct 13 mm, multiple lytic lesions likely multiple myeloma or metastatic disease,3.8 cm right lower lobe air-filled cavity. -echo- LVEF 60% - cardiology consult- Cardiolite stress test- pending report -ipratropium and levalbuterol med nebs -IV ceftriaxone 1 g daily and doxycycline IV b.i.d. -calcium level 12.2, creatinine 1.4, ALP 426, LDH 399 -ordered protein electrophoresis, pending -DVT scan for lower extremities-Thrombus possibly seen in LLE SSV #Hyperbilirubinemia -Liver US- gallbladder is filled with shadowing stones with Gallbladder wall thickening, dilated CBD at 9mm with Mildly echogenic liver parenchyma #Hypokalemia -repleted #Hypernatremia -monitor # Mixed hyperlipidemia - patient counseled about healthy lifestyle modifications and dietary changes # Vitamin D deficiency -vitamin-D 32991 units weekly DVT prophylaxis: Lovenox 40mg daily sc Goals of care: Full code, discussed for >23 minutes Plan discussed with patient Plan discussed with Dr Balderas Plan discussed with: Patient My Orders My Orders Orders - JESSICA MCQUEEN RESIDENT Procedure Category Date Status Time * Wound Consult CONS 09/09/25 Transmitted Complete Blood Count LAB 09/10/25 Verified 04:00 Comprehensive LAB 09/10/25 Verified Metabolic Panel 04:00 Date of Service: Sep 09, 2025 Billing Provider: RUPERTO BALDERAS MD Common Visit Codes: [id number] INP/OBS CARE(HIGH) JESSICA MCQUEEN RESIDENT Sep 09, 2025 20:37
--- NOTE | 2025-09-09 21:09 | DVHPN2 ---
Progress Note - Dictate Date Seen: Sep 09, 2025 Medical Necessity Reason Pt with a Central, PICC or Fol: No Subjective Patient was seen and evaluated in follow up. Patient is currently reporting shortness of breath and mild chest pain. He is on 3 LPM NC. NA 146, K 3.4, BUN 32, STUNT WOMAN 1.40. Liver US shows the gallbladder is filled with shadowing stones. Gallbladder wall thickening. No sonographic whyte's sign. The common bile duct is mildly dilated at 9 mm. Mildly echogenic liver parenchyma. vital signs Vital Sign Date Time Temp Pulse Resp B/P (MAP) Pulse Ox O2 Delivery O2 Flow Rate FiO2 09/09/25 16:54 98.7 81 17 140/64 (89) 95 98.7 09/09/25 11:55 Nasal Cannula* 3 32 Total Intake and Output 09/08/25 09/08/25 09/09/25 15:00 23:00 07:00 Intake Total 650 ml 0 ml Output Total 300 ml Balance 650 ml -300 ml medications Current Medications Medications Dose Ordered Sig/Keyana Route Start Time Stop Time Status Last Admin Dose Admin Acetaminophen 650 mg Q6HP PRN PO 09/08/25 11:00 Acetaminophen/ Hydrocodone Bitart 1 tab Q4HP PRN PO 09/08/25 11:00 09/09/25 15:03 1 TAB Enoxaparin Sodium 40 mg DAILY SC 09/09/25 10:00 09/09/25 08:33 40 MG Doxycycline Hyclate 100 ml @ 50 mls/hr BID IV 09/08/25 11:38 09/09/25 08:33 50 MLS/HR Ceftriaxone Sodium 50 ml @ 100 mls/hr DAILY@0900 IV 09/09/25 09:00 09/09/25 08:33 100 MLS/HR Guaifenesin/ Dextromethorphan 10 ml DAILY PO 09/08/25 13:00 Hold Levalbuterol HCl 1.25 mg Q6HR NEB 09/08/25 12:00 09/09/25 11:52 1.25 MG Ipratropium [place] 0.5 mg Q6HR NEB 09/08/25 12:00 09/09/25 11:52 0.5 MG Ergocalciferol 50,000 unit Q7D PO 09/09/25 09:30 09/09/25 10:29 50,000 UNIT objective GENERAL: Alert and oriented x 3. No acute distress. EYES: PERRL, EOMI. Anicteric. HENT: Moist mucous membranes. LUNGS: Clear to auscultation bilaterally. CARDIOVASCULAR: Regular rate and rhythm. ABDOMEN: Soft, nontender and nondistended. EXTREMITIES: No edema. NEUROLOGIC: No focal neurological deficits. SKIN: Warm, dry. Past surgical scars. laboratory and microbiology Laboratory Tests 09/09/25 07:42 Test 09/09/25 07:42 Range/Units Serum Glucose 88 74-106 mg/dL Problem List NSTEMI likely type 2. Acute hypoxic respiratory failure. Possible COPD exacerbation. Possible G+/- PNA. Ruled out structural heart disease. Assessment/Plan Continued all current supportive medical care. Patient has been seen by Goran Meléndez Resident on my behalf, we have discussed the plan with the patient. Echocardiogram LVEF 60%, hypokinetic lateral wall, moderate AR. EKG showed sinus tachycardia with slight ST-depression in V4, V5 and V6. [id number]. Cardiolite stress test on next availability. DVT/PE PPX. Rest of management as per primary team. Additional plan as per the hospital course. Plan discussed with: Patient QAMAR WALTON MD Sep 09, 2025 17:56
[2025-09-10] VITALS (18 sets, daily range): BP systolic 130–160; BP diastolic 58–71; PULSE 18–128; RESP 17–20; TEMP 97.5–98; O2SAT 92–99
[2025-09-10 06:15] LABS: Hematocrit 37.6 % (41.0-53.0); Hemoglobin 13.4 g/dL (13.5-17.5); Mean Corpuscular Hemoglobin 33.1 pg (28.0-32.0); Mean Corpuscular Volume 92.7 fL (80.0-100.0)
[2025-09-10 07:01] LABS: Alanine Aminotransferase 21 U/L (7-40); Anion Gap 11 (5-15); BUN/Creatinine Ratio 24.1 (10.0-20.0); Chloride 103 mmol/L (98-107); Glucose 90 mg/dL (74-106); Potassium 4.0 mmol/L (3.5-5.1); Total Protein 6.7 g/dL (5.7-8.2)
[2025-09-10 07:03] LABS: Albumin 3.8 g/dL (3.2-4.8); Bilirubin, Total 1.1 mg/dL (0.2-1.0)
[2025-09-10 07:04] LABS: Alkaline Phosphatase 405 U/L (46-116); Blood Urea Nitrogen 32 mg/dL (9-23); Calcium 12.8 mg/dL (8.7-10.4); Carbon Dioxide 32 mmol/L (20-31); Sodium 146 mmol/L (136-145)
[2025-09-10 08:07] LABS: Immunoglobulin A 216 mg/dL (61-437); Immunoglobulin G, Serum 1298 mg/dL (603-1613); Immunoglobulin M 87 mg/dL (15-143)
[2025-09-10 09:01] LABS: Total Cells Counted 100.0 (100)
--- NOTE | 2025-09-10 11:43 | DVHPN2 ---
Progress Note Date Seen: Sep 10, 2025 Resident Creating Document: JAIDA GROSS RESIDENT Medical Necessity Reason Pt with a Central, PICC or Fol: No Subjective Review of Systems Patient seen and examined at the bedside. Patient reported improvement in her symptoms since admission, reported no new complaints. Rest of ROS is negative Objective vital signs Vital Sign Date Time Temp Pulse Resp B/P (MAP) Pulse Ox O2 Delivery O2 Flow Rate FiO2 09/10/25 08:51 97.9 104 19 160/71 (100) 94 97.9 09/10/25 08:00 Nasal Cannula* 3 32 Total Intake and Output 09/09/25 09/09/25 09/10/25 15:00 23:00 07:00 Intake Total 150 ml 1100 ml 700 ml Output Total 475 ml Balance 150 ml 1100 ml 225 ml medications Current Medications Medications Dose Ordered Sig/Keyana Route Start Time Stop Time Status Last Admin Dose Admin Acetaminophen 650 mg Q6HP PRN PO 09/08/25 11:00 Acetaminophen/ Hydrocodone Bitart 1 tab Q4HP PRN PO 09/08/25 11:00 09/09/25 15:03 1 TAB Enoxaparin Sodium 40 mg DAILY SC 09/09/25 10:00 09/10/25 08:50 40 MG Doxycycline Hyclate 100 ml @ 50 mls/hr BID IV 09/08/25 11:38 09/10/25 08:44 50 MLS/HR Ceftriaxone Sodium 50 ml @ 100 mls/hr DAILY@0900 IV 09/09/25 09:00 09/10/25 08:44 100 MLS/HR Guaifenesin/ Dextromethorphan 10 ml DAILY PO 09/08/25 13:00 Hold Levalbuterol HCl 1.25 mg Q6HR NEB 09/08/25 12:00 09/10/25 11:40 1.25 MG Ipratropium [place] 0.5 mg Q6HR NEB 09/08/25 12:00 09/10/25 11:40 0.5 MG Ergocalciferol 50,000 unit Q7D PO 09/09/25 09:30 09/09/25 10:29 50,000 UNIT Lisinopril 30 mg DAILY PO 09/11/25 10:00 Hydrochlorothiazide 25 mg DAILY PO 09/11/25 10:00 Examination Pt is lying on bed General Appearance: Alert, Oriented X3, Cooperative, Not in acute distress HEENT: Atraumatic, Mucous membranes moist/pink Respiratory: Clear to auscultation, Normal air movement, No added sounds Cardiovascular: Regular rate, Normal S1, Normal S2, No murmurs Abdominal: Active bowel sounds, Soft, no distention, no tenderness Extremities: No edema, Normal pulses, No tenderness/swelling Skin: No Significant rash, except past surgical scars Neuro: Normal speech, sensorimotor deficits none Psych/Mental Status: Mental status NL, Mood NL Nurse was there as deputy juvenile officer during examination laboratory and microbiology Laboratory Tests 09/10/25 05:51 Test 09/10/25 05:51 Range/Units Serum Glucose 90 74-106 mg/dL Microbiology Date/Time Source Procedure Growth Status 09/08/25 09:10 Blood Blood Culture - Preliminary NO GROWTH AFTER 48 HOURS OF INCUBATION. Resulted Labs and/or images reviewed: Labs reviewed by me, Image(s) reviewed by me Problem List/Assessment/Plan Problem List/Assessment/Plan NSTEMI likely type 2 Acute hypoxic respiratory failure sec to below Possible COPD exacerbation Possible G+/- PNA Ruled out structural heart disease Plan/recommendations We will continue with the following plan/recommendations (): Echocardiogram LVEF 60%, hypokinetic lateral wall, moderate AR EKG showed sinus tachycardia with slight ST-depression in V4, V5 and V6 [id number] Cardiolite stress test Nuclear Conclusion Nuclear Findings: positive for ischemia inferior wall reversible defect abnormal study apical defect 1mm st depressions in inferior leads lvef 53% Per Dr Vora Angiogram on sunday DVT/PE PPX Rest of management as per primary team Case discussed with the Dr. Vora Plan discussed with: Patient Dietary Evaluation Review Comments: Cardiac diet Nephrology consult Expected Outcomes/Goals: avoid nephrotic symdrome Date of Service: Sep 10, 2025 Billing Provider: LYNNE BECKER Sr., MD Common Visit Codes: [id number] CARE 30-74 MIN JAIDA GROSS RESIDENT Sep 10, 2025 11:43
--- NOTE | 2025-09-10 11:50 | DVHSR ---
APPROVED REPORT Exam: Nuclear Stress Test BMI: 0 Stress Test Details Stress Test: Pharmacologic stress testing performed using 0.4 mg of regadenoson per 5 mL given IV over 10 seconds. HR Resting HR: 100 bpm Max Heart Rate (APMHR): 147.765777 bpm Max HR Achieved: 113 bpm Target HR (85% APMHR): 124.973407 bpm % of APMHR: 76.87 Recovery HR: 102 bpm BP Resting BP: 128/54 mmHg Recovery BP: 113/42 mmHg ECG Resting ECG: Sinus Rhythm Clinical Reason for Termination: Completed protocol Nurse Comments Recieved pt. from [employer]. A/Ox4 on 3L oxygen via NC. Connected to disability specialist, VS stable. Rt IV flushes well. Reviewed POC. Pt. verbalized understanding of procedure including risks and side effects, agrees for stress testing. Lexiscan stress test performed per protocol. [employer] tech administered Cardiolite. Pt. tolerated well. Pt. stable, no change on exam. VS returned to baseline. Transferred to [employer] via bed w/ tech. Stress ECG Conclusion inferior wall reversible defect abnormal study apical defect 1mm st depressions in inferior leads lvef 53% NM EXAM: Myocardial Perfusion REST/STRESS Imaging Protocol: Rest Tc-99m/Stress Tc-99m 2 days Resting Data Rest SPECT myocardial perfusion imaging was performed in supine position 60 minutes following the intravenous injection of 10.1 mCi of Tc-99m Sestamibi. Time of rest injection: 15:12 Date: 09/08/2025 Time of rest imagin:12 Date: 09/09/2025 Administration Route: IV Administration Site: Left Arm Pharmacologic Stress Pharmacologic stress test was performed by injecting Regadenoson 0.4 mg IV push followed by the intravenous injection of 21.1 mCi of Tc-99m Sestamibi. Time of stress injection: 08:24 Date: 09/09/2025 Time of stress imagin:24 Date: 09/09/2025 Administration Route: IV Administration Site: Left Arm Gated Stress SPECT was performed 60 minutes after stress injection. The images were gated to evaluate regional wall motion and calculate left ventricular ejection fraction. Stress only was performed in the Supine position. Nuclear Conclusion Nuclear Findings: positive for ischemia inferior wall reversible defect abnormal study apical defect 1mm st depressions in inferior leads lvef 53%
[2025-09-10] MEDS: hydroCHLOROthiazide 25 MG TAB PO ONE (12:12)
[2025-09-10] MEDS: LISINOPRIL 20 MG TAB PO ONE (12:12)
[2025-09-10 13:34] LABS: Base Excess 3.7 mmol/L (-2.0-3.0)
--- NOTE | 2025-09-10 18:59 | DVHPNRES ---
Progress Note Date Seen: Sep 10, 2025 Resident Creating Document: JESSICA MCQUEEN RESIDENT Medical Necessity Reason Pt with a Central, PICC or Fol: No Subjective Review of Systems Reynaldo Vazquez is a 74-year old male with past medical history of hypertension who presented to the ED after a syncopal episode. Past medical history: Hypertension Past surgical history: Tonsillectomy, rotator cuff surgery on the left side in 2009 Social & Personal history: Lives at home with family Smokin pack-year history, stopped smoking in April 2025 Alcohol: Denies Drugs: Denies Allergies: No known allergies Patient seen and examined at bedside. Patient is alert and oriented to time, place person and responding to all questions. The patient mentions having weakness and malaise. Eyes: No Pain, No Vision change, No Conjunctivae inflammation, No Eyelid inflammation ENT: No Ear pain, No Ear discharge, No Nose pain, No Nose discharge, No Nose congestion, No Mouth pain, No Mouth swelling, No Throat pain, No Throat swelling Cardiovascular: No Chest Pain, No Palpitations, No Orthopnea, No Paroxysmal No Dyspnea, No Edema, No Lt Headedness Respiratory: Cough with sputum,Shortness of breath,SOB with exertion, No Wheezing, No Hemoptysis, No Pleuritic Pain Gastrointestinal: No Nausea, No Vomiting, No Abdominal Pain, No Diarrhea, No Constipation, No Melena, No Hematochezia Genitourinary: No Dysuria, No Frequency, No Incontinence, No Hematuria, No Retention 09/10/25- the patient was seen and evaluated at bedside today. He continued to be on 2 L oxygen by nasal cannula and desaturated on room air. ABG on room air showed PO2 44.6. Cardiolite stress test came back positive for ischemia in inferior wall. The patient will get angiogram on 09/12/[address] Vora. Patient had elevated blood pressure, for which he was started on lisinopril 30 mg p.o. and hydrochlorothiazide 25 mg p.o. once daily. He continued to get med nebs every 6 hours. Patient was explained about the possible diagnosis of multiple myeloma and he demonstrated understanding of the same. Will refer patient for outpatient workup with Dr. Gamaliel Hoang at [facility]. Objective vital signs Vital Sign Date Time Temp Pulse Resp B/P (MAP) Pulse Ox O2 Delivery O2 Flow Rate FiO2 09/10/25 16:44 97.8 103 17 136/66 (89) 93 97.8 09/10/25 11:44 Nasal Cannula* 2 28 Total Intake and Output 09/09/25 09/09/25 09/10/25 15:00 23:00 07:00 Intake Total 150 ml 1100 ml 700 ml Output Total 475 ml Balance 150 ml 1100 ml 225 ml medications Current Medications Medications Dose Ordered Sig/Keyana Route Start Time Stop Time Status Last Admin Dose Admin Acetaminophen 650 mg Q6HP PRN PO 09/08/25 11:00 Acetaminophen/ Hydrocodone Bitart 1 tab Q4HP PRN PO 09/08/25 11:00 09/09/25 15:03 1 TAB Enoxaparin Sodium 40 mg DAILY SC 09/09/25 10:00 09/10/25 08:50 40 MG Doxycycline Hyclate 100 ml @ 50 mls/hr BID IV 09/08/25 11:38 09/10/25 08:44 50 MLS/HR Ceftriaxone Sodium 50 ml @ 100 mls/hr DAILY@0900 IV 09/09/25 09:00 09/10/25 08:44 100 MLS/HR Guaifenesin/ Dextromethorphan 10 ml DAILY PO 09/08/25 13:00 Hold Levalbuterol HCl 1.25 mg Q6HR NEB 09/08/25 12:00 09/10/25 11:40 1.25 MG Ipratropium [place] 0.5 mg Q6HR NEB 09/08/25 12:00 09/10/25 11:40 0.5 MG Ergocalciferol 50,000 unit Q7D PO 09/09/25 09:30 09/09/25 10:29 50,000 UNIT Lisinopril 30 mg DAILY PO 09/11/25 10:00 Hydrochlorothiazide 25 mg DAILY PO 09/11/25 10:00 Examination General Appearance: Cooperative. Well developed. Well nourished. NAD. Currently on 2 liter by nasal canula. Head Exam: Normal inspection Neck Exam: Normal inspection. Non-tender. Normal alignment Pulmonary/Respiratory: Chest non-tender. Clear bilateral breath sounds, no crackles, no wheezing. Cardiovascular/Chest: Regular rate and rhythm. No murmurs. No JVD. Peripheral Pulses: 2+ Radial (R). 2+ Radial (L). 2+ Pedal (R). 2+ Pedal (L) Abdominal Exam: Normal bowel sounds. Soft. normal abdomen, no visible veins, Nontender. No hepatospenomegaly. No masses Ankle Exam: Negative ankle edema Lower extremities: Negative lower extremity edema Neuro/Mental Status: A&O x4. Coherent. Thoughts/Psych: Normal thought pattern. Appropriate mood and affect. Good judgement and insight Skin Exam: Normal inspection. Normal color. Warm. Dry laboratory and microbiology Laboratory Tests 09/10/25 05:51 Test 09/10/25 05:51 Range/Units Serum Glucose 90 74-106 mg/dL Microbiology Date/Time Source Procedure Growth Status 09/08/25 09:10 Blood Blood Culture - Preliminary NO GROWTH AFTER 48 HOURS OF INCUBATION. Resulted Labs and/or images reviewed: Labs reviewed by me, Image(s) reviewed by me Problem List/Assessment/Plan Problem List/Assessment/Plan # Acute hypoxic respiratory failure, likely due to COPD exacerbation, on 3 L by nasal canula # Acute pneumonia, likely bacterial, Gram-positive/Gram-negative # Possible multiple myeloma- Cont outpatient workup , refer to [facility] # PE, ruled out # NSTEMI, likely type 2 -D-dimer >35.2 -CT angio- negative for PE, cholelithiasis, dilated common duct 13 mm, multiple lytic lesions likely multiple myeloma or metastatic disease,3.8 cm right lower lobe air-filled cavity. -echo- LVEF 60% - cardiology consult- Cardiolite stress test- positive for ischemia in inferior wall, per Dr. Vora angiogram on Sunday -ipratropium and levalbuterol med nebs q6hrs prn -IV ceftriaxone 1 g daily and doxycycline IV b.i.d. -calcium level 12.2, creatinine 1.4, ALP 426, LDH 399 -ordered protein electrophoresis, pending -DVT scan for lower extremities-Thrombus possibly seen in LLE SSV #Hypertensive heart disease with possible systolic/diastolic heart failure -lisinopril 30 mg p.o. daily and hydrochlorothiazide 25 mg p.o. daily #Hyperbilirubinemia -Liver US- gallbladder is filled with shadowing stones with Gallbladder wall thickening, dilated CBD at 9mm with Mildly echogenic liver parenchyma #Hypokalemia -repleted #Hypernatremia -monitor # Mixed hyperlipidemia - patient counseled about healthy lifestyle modifications and dietary changes # Vitamin D deficiency -vitamin-D 19454 units weekly DVT prophylaxis: Lovenox 40mg daily sc Goals of care: Full code, discussed for >23 minutes Plan discussed with patient Plan discussed with Dr Balderas Plan discussed with: Patient My Orders My Orders Orders - JESSICA MCQUEEN Procedure Category Date Status Time Cardiac DIET 09/10/25 Transmitted Diet-2gna,Lofat,Lochol Lunch Abg W/ Co-Ox RT 09/10/25 Logged 13:03 Dietary Evaluation Review Comments: Cardiac diet Nephrology consult Expected Outcomes/Goals: avoid nephrotic symdrome Date of Service: Sep 10, 2025 Billing Provider: RUPERTO BALDERAS MD Common Visit Codes: [id number] INP/OBS CARE(HIGH) JESSICA MCQUEEN RESIDENT Sep 10, 2025 18:59 RUPERTO BALDERAS MD Sep 11, 2025 16:55
--- NOTE | 2025-09-10 19:11 | DVHPN2 ---
Progress Note - Dictate Date Seen: Sep 10, 2025 Medical Necessity Reason Pt with a Central, PICC or Fol: No Subjective Patient was seen and evaluated in follow up. Patient reported improvement in her symptoms since admission, reported no new complaints. Stress test is positive for ischemia, inferior wall reversible defect. Patient scheduled for angiogram on Sunday. vital signs Vital Sign Date Time Temp Pulse Resp B/P (MAP) Pulse Ox O2 Delivery O2 Flow Rate FiO2 09/10/25 16:44 97.8 103 17 136/66 (89) 93 97.8 09/10/25 11:44 Nasal Cannula* 2 28 Total Intake and Output 09/09/25 09/09/25 09/10/25 15:00 23:00 07:00 Intake Total 150 ml 1100 ml 700 ml Output Total 475 ml Balance 150 ml 1100 ml 225 ml medications Current Medications Medications Dose Ordered Sig/Keyana Route Start Time Stop Time Status Last Admin Dose Admin Acetaminophen 650 mg Q6HP PRN PO 09/08/25 11:00 Acetaminophen/ Hydrocodone Bitart 1 tab Q4HP PRN PO 09/08/25 11:00 09/09/25 15:03 1 TAB Enoxaparin Sodium 40 mg DAILY SC 09/09/25 10:00 09/10/25 08:50 40 MG Doxycycline Hyclate 100 ml @ 50 mls/hr BID IV 09/08/25 11:38 09/10/25 08:44 50 MLS/HR Ceftriaxone Sodium 50 ml @ 100 mls/hr DAILY@0900 IV 09/09/25 09:00 09/10/25 08:44 100 MLS/HR Guaifenesin/ Dextromethorphan 10 ml DAILY PO 09/08/25 13:00 Hold Levalbuterol HCl 1.25 mg Q6HR NEB 09/08/25 12:00 09/10/25 11:40 1.25 MG Ipratropium [place] 0.5 mg Q6HR NEB 09/08/25 12:00 09/10/25 11:40 0.5 MG Ergocalciferol 50,000 unit Q7D PO 09/09/25 09:30 09/09/25 10:29 50,000 UNIT Lisinopril 30 mg DAILY PO 09/11/25 10:00 Hydrochlorothiazide 25 mg DAILY PO 09/11/25 10:00 objective GENERAL: Alert and oriented x 3. No acute distress. EYES: PERRL, EOMI. Anicteric. HENT: Moist mucous membranes. LUNGS: Clear to auscultation bilaterally. CARDIOVASCULAR: Regular rate and rhythm. ABDOMEN: Soft, nontender and nondistended. EXTREMITIES: No edema. NEUROLOGIC: No focal neurological deficits. SKIN: Warm, dry. Past surgical scars. laboratory and microbiology Laboratory Tests 09/10/25 05:51 Test 09/10/25 05:51 Range/Units Serum Glucose 90 74-106 mg/dL Problem List NSTEMI likely type 2. Acute hypoxic respiratory failure. Possible COPD exacerbation. Possible G+/- PNA. Ruled out structural heart disease. Assessment/Plan Continued all current supportive medical care. Patient has been seen by Goran Meléndez Resident on my behalf, we have discussed the plan with the patient. Echocardiogram LVEF 60%, hypokinetic lateral wall, moderate AR. EKG showed sinus tachycardia with slight ST-depression in V4, V5 and V6. [id number]. Nuclear Conclusion: positive for ischemia, inferior wall reversible defect, abnormal study, apical defect, 1mm st depressions in inferior leads, LV EF 53%. The patient is scheduled for angiogram on Sunday. Rest of management as per primary team. Additional plan as per the hospital course. Dietary Evaluation Review Comments: Cardiac diet Nephrology consult Expected Outcomes/Goals: avoid nephrotic symdrome Plan discussed with: Patient QAMAR WALTON MD Sep 10, 2025 19:11
[2025-09-11] VITALS (18 sets, daily range): BP systolic 102–145; BP diastolic 54–67; PULSE 18–103; RESP 14–84; TEMP 97.8–98.6; O2SAT 91–99
[2025-09-11 07:15] LABS: Hematocrit 38.0 % (41.0-53.0); Hemoglobin 13.3 g/dL (13.5-17.5); Mean Corpuscular Hemoglobin 32.5 pg (28.0-32.0); Mean Corpuscular Volume 92.4 fL (80.0-100.0)
[2025-09-11 07:19] LABS: Chloride 104 mmol/L (98-107); Potassium 3.5 mmol/L (3.5-5.1)
[2025-09-11 07:20] LABS: Anion Gap 11 (5-15)
[2025-09-11 07:25] LABS: Glucose 86 mg/dL (74-106)
[2025-09-11 07:26] LABS: BUN/Creatinine Ratio 25.5 (10.0-20.0); Blood Urea Nitrogen 35 mg/dL (9-23); Calcium 12.7 mg/dL (8.7-10.4); Carbon Dioxide 31 mmol/L (20-31); Sodium 146 mmol/L (136-145)
[2025-09-11 09:13] LABS: Total Cells Counted 100.0 (100)
[2025-09-11] MEDS: hydroCHLOROthiazide 25 MG TAB PO SCH (09:35)
[2025-09-11] MEDS: LISINOPRIL 20 MG TAB PO SCH (09:36)
--- NOTE | 2025-09-11 11:21 | DVHPN2 ---
Progress Note Date Seen: Sep 11, 2025 Resident Creating Document: JAIDA GROSS RESIDENT Medical Necessity Reason Pt with a Central, PICC or Fol: No Subjective Review of Systems Patient seen and examined at the bedside. Patient currently reported no new complaints, reported improvement in his symptoms since admission. Patient reports: No new complaints Objective vital signs Vital Sign Date Time Temp Pulse Resp B/P (MAP) Pulse Ox O2 Delivery O2 Flow Rate FiO2 09/11/25 10:00 97 Nasal Cannula* 2 28 09/11/25 09:36 145/65 09/11/25 08:45 98.0 96 16 98.0 Total Intake and Output 09/10/25 09/10/25 09/11/25 15:00 23:00 07:00 Intake Total 950 ml 900 ml Output Total 700 ml 400 ml Balance 250 ml 500 ml medications Current Medications Medications Dose Ordered Sig/Keyana Route Start Time Stop Time Status Last Admin Dose Admin Acetaminophen 650 mg Q6HP PRN PO 09/08/25 11:00 Acetaminophen/ Hydrocodone Bitart 1 tab Q4HP PRN PO 09/08/25 11:00 09/09/25 15:03 1 TAB Enoxaparin Sodium 40 mg DAILY SC 09/09/25 10:00 09/11/25 09:38 40 MG Doxycycline Hyclate 100 ml @ 50 mls/hr BID IV 09/08/25 11:38 09/10/25 22:11 50 MLS/HR Ceftriaxone Sodium 50 ml @ 100 mls/hr DAILY@0900 IV 09/09/25 09:00 09/11/25 09:39 100 MLS/HR Guaifenesin/ Dextromethorphan 10 ml DAILY PO 09/08/25 13:00 Hold Levalbuterol HCl 1.25 mg Q6HR NEB 09/08/25 12:00 09/11/25 07:23 1.25 MG Ipratropium [place] 0.5 mg Q6HR NEB 09/08/25 12:00 09/11/25 07:22 0.5 MG Ergocalciferol 50,000 unit Q7D PO 09/09/25 09:30 09/09/25 10:29 50,000 UNIT Lisinopril 30 mg DAILY PO 09/11/25 10:00 09/11/25 09:36 30 MG Hydrochlorothiazide 25 mg DAILY PO 09/11/25 10:00 09/11/25 09:35 25 MG Examination Pt is lying on bed General Appearance: Alert, Oriented X3, Cooperative, Not in acute distress HEENT: Atraumatic, Mucous membranes moist/pink Respiratory: Clear to auscultation, Normal air movement, No added sounds Cardiovascular: Regular rate, Normal S1, Normal S2, No murmurs Abdominal: Active bowel sounds, Soft, no distention, no tenderness Extremities: No edema, Normal pulses, No tenderness/swelling Skin: No Significant rash, except past surgical scars Neuro: Normal speech, sensorimotor deficits none Psych/Mental Status: Mental status NL, Mood NL Nurse was there as elastic tape inserter during examination laboratory and microbiology Laboratory Tests 09/11/25 06:14 Test 09/11/25 06:14 Range/Units Serum Glucose 86 74-106 mg/dL Microbiology Date/Time Source Procedure Growth Status 09/08/25 09:10 Blood Blood Culture - Preliminary NO GROWTH AFTER 72 HOURS OF INCUBATION. Resulted Labs and/or images reviewed: Labs reviewed by me, Image(s) reviewed by me Problem List/Assessment/Plan Problem List/Assessment/Plan NSTEMI likely type 2 Acute hypoxic respiratory failure sec to below Possible COPD exacerbation Possible G+/- PNA Ruled out structural heart disease Plan/recommendations We will continue with the following plan/recommendations (): Echocardiogram LVEF 60%, hypokinetic lateral wall, moderate AR EKG showed sinus tachycardia with slight ST-depression in V4, V5 and V6 [id number] Cardiolite stress test Nuclear Conclusion Nuclear Findings: positive for ischemia inferior wall reversible defect abnormal study apical defect 1mm st depressions in inferior leads lvef 53% Per Dr Vora Angiogram on / sunday , keep NPO DVT/PE PPX Rest of management as per primary team Case discussed with the Dr. Vora Plan discussed with: Patient, Spouse Dietary Evaluation Review Comments: Cardiac diet Nephrology consult Expected Outcomes/Goals: avoid nephrotic symdrome Date of Service: Sep 11, 2025 Billing Provider: LYNNE BECKER Sr., MD Common Visit Codes: [id number] CARE 30-74 MIN JAIDA GROSS Sep 11, 2025 11:21
[2025-09-11] MEDS: SODIUM CHLORIDE 0.9% 1,000 ML IV SCH (11:30)
[2025-09-11] MEDS: HEPARIN SODIUM (PORCINE) 5000 UNITS/ML 1ML VIAL ONE (11:42)
[2025-09-11] MEDS: VERAPAMIL 2.5MG/ML INJ 2ML VIAL IV ONE (11:42)
[2025-09-11] MEDS: fentaNYL CITRATE 100 MCG/2 ML VL ONE (11:42)
[2025-09-11] MEDS: ANGIOMAX 250 MG VIAL IV ONE (11:42)
[2025-09-11] MEDS: IODIXANOL 320MG/ML 100ML BTL IV ONE (11:43)
[2025-09-11] MEDS: MIDAZOLAM HCL 2MG/2ML 2ml VIAL (1mg/ml) ONE (11:43)
[2025-09-11] MEDS: NITROGLYCERIN 50MG/250ML 250 ML IV ONE (11:43)
[2025-09-11] MEDS: SODIUM CHL 0.9% 0 ML ONE (11:43)
[2025-09-11] MEDS: LIDOCAINE 2%HCL (LOCAL ANESTH.) INJ 20ML MDV ONE (12:07)
[2025-09-11 12:09] LABS: Hepatitis A Total Antibody Positive (Negative); Hepatitis B Surface Antigen Negative (Negative); Hepatitis C Antibody Negative (Negative)
--- NOTE | 2025-09-11 12:27 | DVHPN2 ---
Progress Note Date Seen: Sep 11, 2025 Medical Necessity Reason Pt with a Central, PICC or Fol: No Objective vital signs Vital Sign Date Time Temp Pulse Resp B/P (MAP) Pulse Ox O2 Delivery O2 Flow Rate FiO2 09/11/25 10:00 97 Nasal Cannula* 2 28 09/11/25 09:36 145/65 09/11/25 08:45 98.0 96 16 98.0 Total Intake and Output 09/10/25 09/10/25 09/11/25 15:00 23:00 07:00 Intake Total 950 ml 900 ml Output Total 700 ml 400 ml Balance 250 ml 500 ml medications Current Medications Medications Dose Ordered Sig/Keyana Route Start Time Stop Time Status Last Admin Dose Admin Acetaminophen 650 mg Q6HP PRN PO 09/08/25 11:00 Acetaminophen/ Hydrocodone Bitart 1 tab Q4HP PRN PO 09/08/25 11:00 09/09/25 15:03 1 TAB Enoxaparin Sodium 40 mg DAILY SC 09/09/25 10:00 09/11/25 09:38 40 MG Doxycycline Hyclate 100 ml @ 50 mls/hr BID IV 09/08/25 11:38 09/10/25 22:11 50 MLS/HR Ceftriaxone Sodium 50 ml @ 100 mls/hr DAILY@0900 IV 09/09/25 09:00 09/11/25 09:39 100 MLS/HR Guaifenesin/ Dextromethorphan 10 ml DAILY PO 09/08/25 13:00 Hold Levalbuterol HCl 1.25 mg Q6HR NEB 09/08/25 12:00 09/11/25 07:23 1.25 MG Ipratropium [place] 0.5 mg Q6HR NEB 09/08/25 12:00 09/11/25 07:22 0.5 MG Ergocalciferol 50,000 unit Q7D PO 09/09/25 09:30 09/09/25 10:29 50,000 UNIT Lisinopril 30 mg DAILY PO 09/11/25 10:00 09/11/25 09:36 30 MG Hydrochlorothiazide 25 mg DAILY PO 09/11/25 10:00 09/11/25 09:35 25 MG Sodium Chloride 1,000 ml @ 75 mls/hr [id number] IV 09/11/25 11:30 Examination: GENERAL:Abnormal, HEENT:Abnormal, LUNGS:Abnormal, CVS:Abnormal, ABDOMEN:Abnormal laboratory and microbiology Laboratory Tests 09/11/25 06:14 Test 09/11/25 06:14 Range/Units Serum Glucose 86 74-106 mg/dL Microbiology Date/Time Source Procedure Growth Status 09/08/25 09:10 Blood Blood Culture - Preliminary NO GROWTH AFTER 72 HOURS OF INCUBATION. Resulted Problem List/Assessment/Plan Problem List/Assessment/Plan NSTEMI likely type 2. Acute hypoxic respiratory failure. Possible COPD exacerbation. Possible G+/- PNA. Ruled out structural heart disease. mod to severe AI r/o multiple myeloma elevated calcium negative LHC, no cad cont CHF management per dr maxwell myeloma workup Plan discussed with: Patient My Orders My Orders Orders - NICOL ALARCON MD Procedure Category Date Status Time Cl Left Heart Cath CL 09/11/25 Taken 11:44 Dietary Evaluation Review Comments: Cardiac diet Nephrology consult Expected Outcomes/Goals: avoid nephrotic symdrome Date of Service: Sep 11, 2025 Billing Provider: NICOL ALARCON MD Common Visit Codes: NOT BILLABLE NICOL ALARCON MD Sep 11, 2025 12:27
--- NOTE | 2025-09-11 12:28 | DVHOP2 ---
Operative Report Operative Report CARDIAC ACADEMIC AFFAIRS ASSISTANT PROCEDURE REPORT [place], [place] Date of Service: 09.11.25 Soft Sugar Operator Head: Nicol Alarcon MD PROCEDURES PERFORMED: Coronary angiogram, left heart catheterization, conscious sedation administration and supervision, less than 15 minutes; fluoroscopy use and interpretation. PREOPERATIVE DIAGNOSES: Abnormal stress test with CCS class 3 angina, POSTOP DIAGNOSIS: mild cad DESCRIPTION OF PROCEDURE: The patient or appropriate family signed informed consent understanding the risks, benefits and alternatives of the procedure, they wished to proceed. The patient was brought to the [facility] [place] The patient was prepped in a sterile fashion. Sedation was used per cardiac cath protocol. I administered 2 mL of 2% lidocaine to the right wrist. With an antegrade front wall puncture. I cannulated the right radial artery and placed a 6-M[place] Glidesheath slender. Next, an intra-arterial spasmolytic was administered. Next, a - 6French [place] catheter andJR4 guide and were used for coronary angiogram and LVEDP measurement and pressure pullback. At the completion of procedure, all guides and wires were removed, and there were no immediate complications. FINDINGS: RCA: Moderate vessel off the right sinus of Valsalva, there is no severe flow limiting stenosis. LEFT MAIN: Moderate size left main, it bifurcates into LAD and circumflex. no stenosis CIRCUMFLEX: Moderate caliber vessel coming off the left main with no flow limiting stenosis. LAD: LAD is a moderate caliber vessel coming of the left main. no stenosis LVEDP of 12 mmhg CONCLUSIONS: 1. no severe cad 2. normal lvedp 3. Aortic regurg on echo PLAN: Aggressive risk factor modification and medical management for the patient. NICOL ALARCON MD Sep 11, 2025 12:28
--- NOTE | 2025-09-11 14:36 | DVHPNRES ---
Progress Note Date Seen: Sep 11, 2025 Resident Creating Document: JESSICA MCQUEEN RESIDENT Medical Necessity Reason Pt with a Central, PICC or Fol: No Subjective Review of Systems Reynaldo Vazquez is a 74-year old male with past medical history of hypertension who presented to the ED after a syncopal episode. The patient reported having shortness of breath and cough with sputum production, whitish in color since the last 8-9 weeks. He reported that the shortness of breath increased on lying down and became better on sitting up. The patient reported going to the urgent care for the same, when he was told he has bronchitis and was sent home on oral antibiotics and steroids. He was due to see Dr. Rivero, chemical operations and training for his 1st appointment with him yesterday. He reports feeling weak, dizzy and losing consciousness while urinating but recovered consciousness within 30 seconds and was able to recall the entire event. He mentions having decreased appetite in the last 1 week. He denied any chest pain, fever, chills or weight loss. He is currently on 3 L of oxygen through nasal cannula. Troponins were slightly elevated at 69-89. Echo showed LVEF 60% with moderate AR. Past medical history: Hypertension Past surgical history: Tonsillectomy, rotator cuff surgery on the left side in 2009 Social & Personal history: Lives at home with family Smokin pack-year history, stopped smoking in April 2025 Alcohol: Denies Drugs: Denies Allergies: No known allergies Patient seen and examined at bedside. Patient is alert and oriented to time, place person and responding to all questions. The patient mentions having weakness and malaise. Eyes: No Pain, No Vision change, No Conjunctivae inflammation, No Eyelid inflammation ENT: No Ear pain, No Ear discharge, No Nose pain, No Nose discharge, No Nose congestion, No Mouth pain, No Mouth swelling, No Throat pain, No Throat swelling Cardiovascular: No Chest Pain, No Palpitations, No Orthopnea, No Paroxysmal No Dyspnea, No Edema, No Lt Headedness Respiratory: Cough with sputum,Shortness of breath,SOB with exertion, No Wheezing, No Hemoptysis, No Pleuritic Pain Gastrointestinal: No Nausea, No Vomiting, No Abdominal Pain, No Diarrhea, No Constipation, No Melena, No Hematochezia Genitourinary: No Dysuria, No Frequency, No Incontinence, No Hematuria, No Retention 09/10/25- the patient was seen and evaluated at bedside today. He continued to be on 2 L oxygen by nasal cannula and desaturated on room air. ABG on room air showed PO2 44.6. Cardiolite stress test came back positive for ischemia in inferior wall. The patient will get angiogram on 09/12/[address] Vora. Patient had elevated blood pressure, for which he was started on lisinopril 30 mg p.o. and hydrochlorothiazide 25 mg p.o. once daily. He continued to get med nebs every 6 hours. Patient was explained about the possible diagnosis of multiple myeloma and he demonstrated understanding of the same. 09/11/25- The patient was seen at bedside today. He continued to be on oxygen 3 liter by nasal canula. Mednebs were continued. The patient underwent left heart catheterization today, no stenosis was seen. They recommended to continue with CHF management. administrative services assistant consult was placed to arrange home oxygen 3 liter by nasal canula continuous. We will refer patient for outpatient workup with Dr. Gamaliel Hoang at [facility]. Objective vital signs Vital Sign Date Time Temp Pulse Resp B/P (MAP) Pulse Ox O2 Delivery O2 Flow Rate FiO2 09/11/25 13:33 97 22 119/63 (81) 93 09/11/25 12:35 98.6 98.6 09/11/25 10:00 Nasal Cannula* 2 28 Total Intake and Output 09/10/25 09/10/25 09/11/25 15:00 23:00 07:00 Intake Total 950 ml 900 ml Output Total 700 ml 400 ml Balance 250 ml 500 ml medications Current Medications Medications Dose Ordered Sig/Keyana Route Start Time Stop Time Status Last Admin Dose Admin Acetaminophen 650 mg Q6HP PRN PO 09/08/25 11:00 Acetaminophen/ Hydrocodone Bitart 1 tab Q4HP PRN PO 09/08/25 11:00 09/09/25 15:03 1 TAB Enoxaparin Sodium 40 mg DAILY SC 09/09/25 10:00 09/11/25 09:38 40 MG Doxycycline Hyclate 100 ml @ 50 mls/hr BID IV 09/08/25 11:38 09/10/25 22:11 50 MLS/HR Ceftriaxone Sodium 50 ml @ 100 mls/hr DAILY@0900 IV 09/09/25 09:00 09/11/25 09:39 100 MLS/HR Guaifenesin/ Dextromethorphan 10 ml DAILY PO 09/08/25 13:00 Hold Levalbuterol HCl 1.25 mg Q6HR NEB 09/08/25 12:00 09/11/25 07:23 1.25 MG Ipratropium [place] 0.5 mg Q6HR NEB 09/08/25 12:00 09/11/25 07:22 0.5 MG Ergocalciferol 50,000 unit Q7D PO 09/09/25 09:30 09/09/25 10:29 50,000 UNIT Lisinopril 30 mg DAILY PO 09/11/25 10:00 09/11/25 09:36 30 MG Hydrochlorothiazide 25 mg DAILY PO 09/11/25 10:00 09/11/25 09:35 25 MG Sodium Chloride 1,000 ml @ 75 mls/hr [id number] IV 09/11/25 11:30 Examination General Appearance: Cooperative. Well developed. Well nourished. NAD. Currently on 3 liter by nasal canula. Head Exam: Normal inspection Neck Exam: Normal inspection. Non-tender. Normal alignment Pulmonary/Respiratory: Chest non-tender. Clear bilateral breath sounds, no crackles, no wheezing. Cardiovascular/Chest: Regular rate and rhythm. No murmurs. No JVD. Peripheral Pulses: 2+ Radial (R). 2+ Radial (L). 2+ Pedal (R). 2+ Pedal (L) Abdominal Exam: Normal bowel sounds. Soft. normal abdomen, no visible veins, Nontender. No hepatospenomegaly. No masses Ankle Exam: Negative ankle edema Lower extremities: Negative lower extremity edema Neuro/Mental Status: A&O x4. Coherent. Thoughts/Psych: Normal thought pattern. Appropriate mood and affect. Good judgement and insight Skin Exam: Normal inspection. Normal color. Warm. Dry laboratory and microbiology Laboratory Tests 09/11/25 06:14 Test 09/11/25 06:14 Range/Units Serum Glucose 86 74-106 mg/dL Microbiology Date/Time Source Procedure Growth Status 09/08/25 09:10 Blood Blood Culture - Preliminary NO GROWTH AFTER 72 HOURS OF INCUBATION. Resulted Labs and/or images reviewed: Labs reviewed by me, Image(s) reviewed by me Problem List/Assessment/Plan Problem List/Assessment/Plan # Acute hypoxic respiratory failure, likely due to COPD exacerbation, on 3 L by nasal canula # Acute pneumonia, likely bacterial, Gram-positive/Gram-negative # Possible multiple myeloma- Cont outpatient workup , refer to [facility] # PE, ruled out # NSTEMI, likely type 2 -D-dimer >35.2 -CT angio- negative for PE, cholelithiasis, dilated common duct 13 mm, multiple lytic lesions likely multiple myeloma or metastatic disease,3.8 cm right lower lobe air-filled cavity. -echo- LVEF 60% - cardiology consult- Cardiolite stress test- positive for ischemia in inferior wall, left heart cath negative, no stenosis -ipratropium and levalbuterol med nebs q6hrs prn -IV ceftriaxone 1 g daily and doxycycline IV b.i.d. -calcium level 12.2, creatinine 1.4, ALP 426, LDH 399 -ordered protein electrophoresis, pending -DVT scan for lower extremities-Thrombus possibly seen in LLE SSV -Will refer patient for outpatient workup with Dr. Gamaliel Hoang at [facility]. #Hypertensive heart disease with possible systolic/diastolic heart failure -lisinopril 30 mg p.o. daily and hydrochlorothiazide 25 mg p.o. daily #Hyperbilirubinemia -Liver US- gallbladder is filled with shadowing stones with Gallbladder wall thickening, dilated CBD at 9mm with Mildly echogenic liver parenchyma #Hypokalemia -repleted #Hypernatremia -monitor # Mixed hyperlipidemia - patient counseled about healthy lifestyle modifications and dietary changes # Vitamin D deficiency -vitamin-D 67672 units weekly DVT prophylaxis: Lovenox 40mg daily sc Goals of care: Full code, discussed for >23 minutes Plan discussed with patient Plan discussed with Dr Balderas Plan discussed with: Patient My Orders My Orders Orders - JESSICA MCQUEEN Procedure Category Date Status Time * Jewelry Casting Model Maker Apprentice CONS 09/11/25 Transmitted Consult Staff Rn ORDERS 09/11/25 Transmitted 13:18 Dietary Evaluation Review Comments: Cardiac diet Nephrology consult Expected Outcomes/Goals: avoid nephrotic symdrome Date of Service: Sep 11, 2025 Billing Provider: RUPERTO BALDERAS MD Common Visit Codes: [id number] INP/OBS CARE(HIGH) JESSICA MCQUEEN RESIDENT Sep 11, 2025 14:36
--- NOTE | 2025-09-11 20:45 | DVHPN2 ---
Progress Note - Dictate Date Seen: Sep 11, 2025 Medical Necessity Reason Pt with a Central, PICC or Fol: No Subjective Patient was seen and evaluated in follow up. Patient underwent coronary angiogram, left heart catheterization by , no severe cad, normal lvedp, aortic regurg on echo. Patient was recommended for aggressive risk factor modification and medical management for the patient. vital signs Vital Sign Date Time Temp Pulse Resp B/P (MAP) Pulse Ox O2 Delivery O2 Flow Rate FiO2 09/11/25 13:03 98 21 114/57 (76) 94 09/11/25 12:35 98.6 98.6 09/11/25 10:00 Nasal Cannula* 2 28 Total Intake and Output 09/10/25 09/10/25 09/11/25 15:00 23:00 07:00 Intake Total 950 ml 900 ml Output Total 700 ml 400 ml Balance 250 ml 500 ml medications Current Medications Medications Dose Ordered Sig/Keyana Route Start Time Stop Time Status Last Admin Dose Admin Acetaminophen 650 mg Q6HP PRN PO 09/08/25 11:00 Acetaminophen/ Hydrocodone Bitart 1 tab Q4HP PRN PO 09/08/25 11:00 09/09/25 15:03 1 TAB Enoxaparin Sodium 40 mg DAILY SC 09/09/25 10:00 09/11/25 09:38 40 MG Doxycycline Hyclate 100 ml @ 50 mls/hr BID IV 09/08/25 11:38 09/10/25 22:11 50 MLS/HR Ceftriaxone Sodium 50 ml @ 100 mls/hr DAILY@0900 IV 09/09/25 09:00 09/11/25 09:39 100 MLS/HR Guaifenesin/ Dextromethorphan 10 ml DAILY PO 09/08/25 13:00 Hold Levalbuterol HCl 1.25 mg Q6HR NEB 09/08/25 12:00 09/11/25 07:23 1.25 MG Ipratropium [place] 0.5 mg Q6HR NEB 09/08/25 12:00 09/11/25 07:22 0.5 MG Ergocalciferol 50,000 unit Q7D PO 09/09/25 09:30 09/09/25 10:29 50,000 UNIT Lisinopril 30 mg DAILY PO 09/11/25 10:00 09/11/25 09:36 30 MG Hydrochlorothiazide 25 mg DAILY PO 09/11/25 10:00 09/11/25 09:35 25 MG Sodium Chloride 1,000 ml @ 75 mls/hr [id number] IV 09/11/25 11:30 objective GENERAL: Alert and oriented x 3. No acute distress. EYES: PERRL, EOMI. Anicteric. HENT: Moist mucous membranes. LUNGS: Clear to auscultation bilaterally. CARDIOVASCULAR: Regular rate and rhythm. ABDOMEN: Soft, nontender and nondistended. EXTREMITIES: No edema. NEUROLOGIC: No focal neurological deficits. SKIN: Warm, dry. Past surgical scars. laboratory and microbiology Laboratory Tests 09/11/25 06:14 Test 09/11/25 06:14 Range/Units Serum Glucose 86 74-106 mg/dL Problem List NSTEMI likely type 2. Acute hypoxic respiratory failure. Possible COPD exacerbation. Possible G+/- PNA. Ruled out structural heart disease. Assessment/Plan Continued all current supportive medical care. Patient has been seen by Goran Meléndez Resident on my behalf, we have discussed the plan with the patient. Echocardiogram LVEF 60%, hypokinetic lateral wall, moderate AR. EKG showed sinus tachycardia with slight ST-depression in V4, V5 and V6. [id number]. Nuclear Conclusion: positive for ischemia, inferior wall reversible defect, abnormal study, apical defect, 1mm st depressions in inferior leads, LV EF 53%. The patient is scheduled for angiogram on Sunday. Rest of management as per primary team. Additional plan as per the hospital course. Dietary Evaluation Review Comments: Cardiac diet Nephrology consult Expected Outcomes/Goals: avoid nephrotic symdrome Plan discussed with: Patient QAMAR WALTON MD Sep 11, 2025 13:38
[2025-09-12] VITALS (20 sets, daily range): BP systolic 113–149; BP diastolic 61–70; PULSE 63–104; RESP 16–20; TEMP 97.9–98.6; O2SAT 90–99
[2025-09-12] MEDS: LEVALBUTEROL HCL 1.25 MG/3 ML NEB ONE (00:15)
[2025-09-12 06:30] LABS: Anion Gap 12 (5-15); Carbon Dioxide 30 mmol/L (20-31); Chloride 104 mmol/L (98-107)
[2025-09-12 06:33] LABS: Hematocrit 36.1 % (41.0-53.0); Hemoglobin 12.9 g/dL (13.5-17.5); Mean Corpuscular Hemoglobin 32.9 pg (28.0-32.0); Mean Corpuscular Volume 92.5 fL (80.0-100.0); Nucleated Red Blood Cells % 0.1 %
[2025-09-12 06:36] LABS: BUN/Creatinine Ratio 20.9 (10.0-20.0); Blood Urea Nitrogen 28 mg/dL (9-23); Calcium 12.9 mg/dL (8.7-10.4); Glucose 83 mg/dL (74-106); Potassium 3.4 mmol/L (3.5-5.1); Sodium 146 mmol/L (136-145)
[2025-09-12] MEDS: D5W 5% 1,000 ML IV ONE (07:15)
[2025-09-12] MEDS: POTASSIUM EFFERVESENT TAB 25 MEQ PO ONE (07:15)
--- NOTE | 2025-09-12 15:16 | DVHPNRES ---
Progress Note Date Seen: Sep 12, 2025 Resident Creating Document: JESSICA MCQUEEN RESIDENT Medical Necessity Reason Pt with a Central, PICC or Fol: No Subjective Review of Systems Reynaldo Vazquez is a 74-year old male with past medical history of hypertension who presented to the ED after a syncopal episode. The patient reported having shortness of breath and cough with sputum production, whitish in color since the last 8-9 weeks. He reported that the shortness of breath increased on lying down and became better on sitting up. The patient reported going to the urgent care for the same, when he was told he has bronchitis and was sent home on oral antibiotics and steroids. He was due to see Dr. Rivero, stand up forklift operator for his 1st appointment with him yesterday. He reports feeling weak, dizzy and losing consciousness while urinating but recovered consciousness within 30 seconds and was able to recall the entire event. He mentions having decreased appetite in the last 1 week. He denied any chest pain, fever, chills or weight loss. He is currently on 3 L of oxygen through nasal cannula. Troponins were slightly elevated at 69-89. Echo showed LVEF 60% with moderate AR. Past medical history: Hypertension Past surgical history: Tonsillectomy, rotator cuff surgery on the left side in 2009 Social & Personal history: Lives at home with family Smokin pack-year history, stopped smoking in April 2025 Alcohol: Denies Drugs: Denies Allergies: No known allergies Patient seen and examined at bedside. Patient is alert and oriented to time, place person and responding to all questions. The patient mentions having weakness and malaise. Eyes: No Pain, No Vision change, No Conjunctivae inflammation, No Eyelid inflammation ENT: No Ear pain, No Ear discharge, No Nose pain, No Nose discharge, No Nose congestion, No Mouth pain, No Mouth swelling, No Throat pain, No Throat swelling Cardiovascular: No Chest Pain, No Palpitations, No Orthopnea, No Paroxysmal No Dyspnea, No Edema, No Lt Headedness Respiratory: Cough with sputum,Shortness of breath,SOB with exertion, No Wheezing, No Hemoptysis, No Pleuritic Pain Gastrointestinal: No Nausea, No Vomiting, No Abdominal Pain, No Diarrhea, No Constipation, No Melena, No Hematochezia Genitourinary: No Dysuria, No Frequency, No Incontinence, No Hematuria, No Retention 09/10/25- the patient was seen and evaluated at bedside today. He continued to be on 2 L oxygen by nasal cannula and desaturated on room air. ABG on room air showed PO2 44.6. Cardiolite stress test came back positive for ischemia in inferior wall. The patient will get angiogram on 09/12/[address] Vora. Patient had elevated blood pressure, for which he was started on lisinopril 30 mg p.o. and hydrochlorothiazide 25 mg p.o. once daily. He continued to get med nebs every 6 hours. Patient was explained about the possible diagnosis of multiple myeloma and he demonstrated understanding of the same. 09/11/25- The patient was seen at bedside today. He continued to be on oxygen 3 liter by nasal canula. MedNebs were continued. The patient underwent left heart catheterization today, no stenosis was seen. They recommended to continue with CHF management. special services supervisor consult was placed to arrange home oxygen 3 liter by nasal canula continuous. We will refer patient for outpatient workup with Dr. Gamaliel Hoang at [facility]. 09/12/25- The patient was seen and evaluated at bedside. He continued to be on 3 L oxygen by nasal cannula. Sodium was 146, so NS was discontinued and he was given 1 liter of D5W. Potassium was 3.4 which was repleted. All updates were given to the spouse who was bedside. All information was shared about the possible diagnosis of multiple myeloma and follow-up with Dr. Gamaliel Hoang at [facility] for further workup. Physical therapy evaluation was ordered for the patient as he mentioned not being able to walk even at home. Possibility of SNF placement was discussed with the patient, but he refused. We will consider discharging patient home with home health for physical therapy, based on evaluation by Physical therapy. Objective vital signs Vital Sign Date Time Temp Pulse Resp B/P (MAP) Pulse Ox O2 Delivery O2 Flow Rate FiO2 09/12/25 13:00 98.6 100 18 113/65 (81) 95 98.6 09/12/25 10:00 Nasal Cannula* 3 32 Total Intake and Output 09/11/25 09/11/25 09/12/25 15:00 23:00 07:00 Intake Total 250 ml 780 ml Output Total 250 ml 800 ml Balance 0 ml -20 ml medications Current Medications Medications Dose Ordered Sig/Keyana Route Start Time Stop Time Status Last Admin Dose Admin Acetaminophen 650 mg Q6HP PRN PO 09/08/25 11:00 Acetaminophen/ Hydrocodone Bitart 1 tab Q4HP PRN PO 09/08/25 11:00 09/11/25 17:38 1 TAB Enoxaparin Sodium 40 mg DAILY SC 09/09/25 10:00 09/12/25 10:09 40 MG Doxycycline Hyclate 100 ml @ 50 mls/hr BID IV 09/08/25 11:38 09/12/25 10:09 50 MLS/HR Ceftriaxone Sodium 50 ml @ 100 mls/hr DAILY@0900 IV 09/09/25 09:00 09/11/25 09:39 100 MLS/HR Guaifenesin/ Dextromethorphan 10 ml DAILY PO 09/08/25 13:00 Hold Levalbuterol HCl 1.25 mg Q6HR NEB 09/08/25 12:00 09/12/25 11:55 1.25 MG Ipratropium [place] 0.5 mg Q6HR NEB 09/08/25 12:00 09/12/25 11:55 0.5 MG Ergocalciferol 50,000 unit Q7D PO 09/09/25 09:30 09/09/25 10:29 50,000 UNIT Lisinopril 30 mg DAILY PO 09/11/25 10:00 09/12/25 10:08 30 MG Hydrochlorothiazide 25 mg DAILY PO 09/11/25 10:00 09/12/25 10:08 25 MG Examination General Appearance: Cooperative. Well developed. Well nourished. NAD. Currently on 3 liter by nasal canula. Head Exam: Normal inspection Neck Exam: Normal inspection. Non-tender. Normal alignment Pulmonary/Respiratory: Chest non-tender. Clear bilateral breath sounds, no crackles, no wheezing. Cardiovascular/Chest: Regular rate and rhythm. No murmurs. No JVD. Peripheral Pulses: 2+ Radial (R). 2+ Radial (L). 2+ Pedal (R). 2+ Pedal (L) Abdominal Exam: Normal bowel sounds. Soft. normal abdomen, no visible veins, Nontender. No hepatospenomegaly. No masses Ankle Exam: Negative ankle edema Lower extremities: Negative lower extremity edema Neuro/Mental Status: A&O x4. Coherent. Thoughts/Psych: Normal thought pattern. Appropriate mood and affect. Good judgement and insight Skin Exam: Normal inspection. Normal color. Warm. Dry laboratory and microbiology Laboratory Tests 09/12/25 05:11 Test 09/12/25 05:11 Range/Units Serum Glucose 83 74-106 mg/dL Microbiology Date/Time Source Procedure Growth Status 09/08/25 09:10 Blood Blood Culture - Preliminary NO GROWTH AFTER 72 HOURS OF INCUBATION. Resulted Labs and/or images reviewed: Labs reviewed by me, Image(s) reviewed by me Problem List/Assessment/Plan Problem List/Assessment/Plan # Acute hypoxic respiratory failure, likely due to COPD exacerbation, on 3 L/min by nasal canula # Acute pneumonia, likely bacterial, Gram-positive/Gram-negative # Possible multiple myeloma- Continue outpatient workup , refer to [facility] # PE, ruled out # NSTEMI, likely type 2 -D-dimer >35.2 -CT angio- negative for PE, cholelithiasis, dilated common duct 13 mm, multiple lytic lesions likely multiple myeloma or metastatic disease,3.8 cm right lower lobe air-filled cavity. -echo- LVEF 60% - cardiology consult- Cardiolite stress test- positive for ischemia in inferior wall, left heart cath negative, no stenosis -ipratropium and levalbuterol med nebs q6hrs prn -IV ceftriaxone 1 g daily and doxycycline IV b.i.d. -calcium level 12.2, creatinine 1.4, ALP 426, LDH 399 -ordered protein electrophoresis, pending -DVT scan for lower extremities-Thrombus possibly seen in LLE SSV -Will refer patient for outpatient workup with Dr. Gamaliel Hoang at [facility]. #Hypertensive heart disease with possible systolic/diastolic heart failure -lisinopril 30 mg p.o. daily and hydrochlorothiazide 25 mg p.o. daily #Hyperbilirubinemia -Liver US- gallbladder is filled with shadowing stones with Gallbladder wall thickening, dilated CBD at 9mm with Mildly echogenic liver parenchyma #Hypokalemia -repleted -given 25mEq potassium po today #Hypernatremia -monitor -D5W 1liter # Mixed hyperlipidemia - patient counseled about healthy lifestyle modifications and dietary changes # Vitamin D deficiency -vitamin-D 26833 units po weekly DVT prophylaxis: Lovenox 40mg daily sc Goals of care discussd for 20 minutes: Full code Plan discussed with patient and spouse Plan discussed with Dr Estrada Plan discussed with: Patient, Spouse, Other (RN) My Orders My Orders Orders - JESSICA MCQUEEN RESIDENT Procedure Category Date Status Time Pt Request For Service PT 09/11/25 Logged 18:10 D5w 5% (Dextrose 5%) PHA 09/12/25 In Process 07:15 Dietary Evaluation Review Comments: Cardiac diet Nephrology consult Expected Outcomes/Goals: avoid nephrotic symdrome Date of Service: Sep 12, 2025 Billing Provider: SILVIA ESTRADA MD Common Visit Codes: [id number] INP/OBS CARE(HIGH) Secondary Visit Codes: [id number] CARE PLAN 30 MINUTES (20 minutes) JESSICA MCQUEEN RESIDENT Sep 12, 2025 15:16 CLAUDETTE HENDERSON RESIDENT Sep 12, 2025 16:14 SILVIA ESTRADA MD Sep 15, 2025 07:17
--- NOTE | 2025-09-12 23:20 | DVHPN2 ---
Progress Note - Dictate Date Seen: Sep 12, 2025 Medical Necessity Reason Pt with a Central, PICC or Fol: No Subjective Patient was seen and evaluated in follow up. Patient is complaining of generalized discomfort. Patient is working with PT. Patient is adamantly refusing SNF placement, he prefers . NA 146, K 3.4, BUN 28, AIR HOLE DRILLER 1.34. Telemetry reviewed. vital signs Vital Sign Date Time Temp Pulse Resp B/P (MAP) Pulse Ox O2 Delivery O2 Flow Rate FiO2 09/12/25 13:00 98.6 100 18 113/65 (81) 95 98.6 09/12/25 10:00 Nasal Cannula* 3 32 Total Intake and Output 09/11/25 09/11/25 09/12/25 15:00 23:00 07:00 Intake Total 250 ml 780 ml Output Total 250 ml 800 ml Balance 0 ml -20 ml medications Current Medications Medications Dose Ordered Sig/Keyana Route Start Time Stop Time Status Last Admin Dose Admin Acetaminophen 650 mg Q6HP PRN PO 09/08/25 11:00 Acetaminophen/ Hydrocodone Bitart 1 tab Q4HP PRN PO 09/08/25 11:00 09/11/25 17:38 1 TAB Enoxaparin Sodium 40 mg DAILY SC 09/09/25 10:00 09/12/25 10:09 40 MG Doxycycline Hyclate 100 ml @ 50 mls/hr BID IV 09/08/25 11:38 09/12/25 10:09 50 MLS/HR Ceftriaxone Sodium 50 ml @ 100 mls/hr DAILY@0900 IV 09/09/25 09:00 09/11/25 09:39 100 MLS/HR Guaifenesin/ Dextromethorphan 10 ml DAILY PO 09/08/25 13:00 Hold Levalbuterol HCl 1.25 mg Q6HR NEB 09/08/25 12:00 09/12/25 11:55 1.25 MG Ipratropium [place] 0.5 mg Q6HR NEB 09/08/25 12:00 09/12/25 11:55 0.5 MG Ergocalciferol 50,000 unit Q7D PO 09/09/25 09:30 09/09/25 10:29 50,000 UNIT Lisinopril 30 mg DAILY PO 09/11/25 10:00 09/12/25 10:08 30 MG Hydrochlorothiazide 25 mg DAILY PO 09/11/25 10:00 09/12/25 10:08 25 MG objective GENERAL: Alert and oriented x 3. No acute distress. EYES: PERRL, EOMI. Anicteric. HENT: Moist mucous membranes. LUNGS: Clear to auscultation bilaterally. CARDIOVASCULAR: Regular rate and rhythm. ABDOMEN: Soft, nontender and nondistended. EXTREMITIES: No edema. NEUROLOGIC: No focal neurological deficits. SKIN: Warm, dry. Past surgical scars. laboratory and microbiology Laboratory Tests 09/12/25 05:11 Test 09/12/25 05:11 Range/Units Serum Glucose 83 74-106 mg/dL Problem List NSTEMI likely type 2. Acute hypoxic respiratory failure. Possible COPD exacerbation. Possible G+/- PNA. Ruled out structural heart disease. Assessment/Plan Continued all current supportive medical care. [place] for pain management. IV antibiotics as ordered. DVT prophylactics. Lisinopril. HCTZ. Additional plan as per the hospital course. Dietary Evaluation Review Comments: Cardiac diet Nephrology consult Expected Outcomes/Goals: avoid nephrotic symdrome Plan discussed with: Patient QAMAR WALTON MD Sep 12, 2025 17:57
[2025-09-13] VITALS (13 sets, daily range): BP systolic 126–154; BP diastolic 60–76; PULSE 77–108; RESP 14–20; TEMP 97.9–99.1; O2SAT 80–98
[2025-09-13 06:24] LABS: Hematocrit 37.3 % (41.0-53.0); Hemoglobin 13.3 g/dL (13.5-17.5); Mean Corpuscular Hemoglobin 32.8 pg (28.0-32.0); Mean Corpuscular Volume 92.0 fL (80.0-100.0); Nucleated Red Blood Cells % 0.1 %
[2025-09-13 06:32] LABS: Chloride 104 mmol/L (98-107)
[2025-09-13 06:33] LABS: Anion Gap 13 (5-15); Calcium 13.5 mg/dL (8.7-10.4); Carbon Dioxide 30 mmol/L (20-31); Potassium 3.3 mmol/L (3.5-5.1); Sodium 147 mmol/L (136-145)
[2025-09-13 06:38] LABS: BUN/Creatinine Ratio 17.0 (10.0-20.0); Glucose 93 mg/dL (74-106)
[2025-09-13 06:44] LABS: Blood Urea Nitrogen 24 mg/dL (9-23)
[2025-09-13] MEDS ORDERED: CALCITONIN 400unit/2ml Vial (200unit/ml) IM ONE (07:00)
[2025-09-13] MEDS: POTASSIUM EFFERVESENT TAB 25 MEQ PO ONE (07:01)
[2025-09-13] MEDS: SODIUM CHLORIDE 0.9% 1,000 ML IV ONE (07:02)
[2025-09-13] MEDS: CALCITONIN 400unit/2ml Vial (200unit/ml) IM ONE (09:26)
--- NOTE | 2025-09-13 10:12 | DVHPNRES ---
Progress Note Date Seen: Sep 13, 2025 Resident Creating Document: ANDREA GARCIA RESIDENT Has the PT tested + for MRSA If YES, has PT been informed?: No Medical Necessity Reason Pt with a Central, PICC or Fol: No Subjective Review of Systems Reynaldo Rizvi is a 74-year old male patient, with past medical history of hypertension who presented to the ED after a syncopal episode. The patient reported having shortness of breath and cough with sputum production, whitish in color since the last 8-9 weeks. He reported that the shortness of breath increased on lying down and became better on sitting up. The patient reported going to the urgent care for the same, when he was told he has bronchitis and was sent home on oral antibiotics and steroids. He was due to see Dr. Rivero, activities assistant for his 1st appointment with him yesterday. He reports feeling weak, dizzy and losing consciousness while urinating but recovered consciousness within 30 seconds and was able to recall the entire event. He mentions having decreased appetite in the last 1 week. He denied any chest pain, fever, chills or weight loss. The patient was on 3 L/MIN of oxygen through nasal cannula. Troponins were slightly elevated at 69-89. Echo showed LVEF 60% with moderate AR. Past medical history: Hypertension Past surgical history: Tonsillectomy, rotator cuff surgery on the left side in 2009 Social & Personal history: Lives at home with family Smokin pack-year history, stopped smoking in April 2025 Alcohol: Denies Drugs: Denies Allergies: No known allergies Hospital course: 09/10/25- the patient was seen and evaluated at bedside today. He continued to be on 2 L oxygen by nasal cannula and desaturated on room air. ABG on room air showed PO2 44.6. Cardiolite stress test came back positive for ischemia in inferior wall. The patient will get angiogram on 09/12/[address] Vora. Patient had elevated blood pressure, for which he was started on lisinopril 30 mg p.o. and hydrochlorothiazide 25 mg p.o. once daily. He continued to get med nebs every 6 hours. Patient was explained about the possible diagnosis of multiple myeloma and he demonstrated understanding of the same. 09/11/25- The patient was seen at bedside today. He continued to be on oxygen 3 liter by nasal canula. Mednebs were continued. The patient underwent left heart catheterization today, no stenosis was seen. They recommended to continue with CHF management. technology services manager consult was placed to arrange home oxygen 3 liter by nasal canula continuous. We will refer patient for outpatient workup with Dr. Gamaliel Hoang at [facility]. 09/12/25- The patient was seen and evaluated at bedside. He continued to be on 3 L oxygen by nasal cannula. Sodium was 146, so NS was discontinued and he was given 1 liter of D5W. Potassium was 3.4 which was repleted. All updates were given to the spouse who was bedside. All information was shared about the possible diagnosis of multiple myeloma and follow-up with Dr. Gamaliel Hoang at [facility] for further workup. Physical therapy evaluation was ordered for the patient as he mentioned not being able to walk even at home. Possibility of SNF placement was discussed with the patient, but he refused. We will consider discharging patient home with home health for physical therapy, based on evaluation by Physical therapy. 09/13/25- The patient was evaluated and examined at bedside.VS, Labs and chart were reviewed. Potassium was low this morning K: 3.3 and it was replenish. Hypercalcemia 13.5 and Hypernatremia 147 was reported. Fluids: D5W 50ml/hr once was started. ECHO showed EF: 60% The patient reports shortness of breath and generalized weakens, he continues with 3 L oxygen by nasal cannula and receiving Mednebs (Albuterol and ipratropium). The US doppler show superficial thrombus, we will continue monitoring. The possibility of SNF placement was discussed with the patient, but the patient refused. A PT consult was requested for home health for physical therapy. [place] services dropped off yesterday the O2 tank for home oxygen and is ready for the patient upon discharge. All information was shared about the possible diagnosis of multiple myeloma and follow-up with Dr. Gamaliel Hoang at [facility] for further workup. We will continue following the progress of this patient. ROS: Constitutional: Yes; Weakness and malaise. No fever, no chills. Eyes: No Pain, No Vision change, No Conjunctivae inflammation, No Eyelid inflammation ENT: No Ear pain, No Ear discharge, No Nose pain, No Nose discharge, No Nose congestion, No Mouth pain, No Mouth swelling, No Throat pain, No Throat swelling Cardiovascular: No Chest Pain, No Palpitations, No Orthopnea, No Paroxysmal No Dyspnea, No Edema, No Lt Headedness Respiratory: Cough with sputum,Shortness of breath, SOB with exertion, No Wheezing, No Hemoptysis, No Pleuritic Pain Gastrointestinal: No Nausea, No Vomiting, No Abdominal Pain, No Diarrhea, No Constipation, No Melena, No Hematochezia Genitourinary: No Dysuria, No Frequency, No Incontinence, No Hematuria, No Retention Neurologic: no numbness or tingling sensation, no motor deficit. Psychiatric: denies: anxiety, bipolar disorder, depression, hopeless, panic disorder, schizophrenia, sleepless, suicidal, others All Other Systems: Reviewed and Negative Objective vital signs Vital Sign Date Time Temp Pulse Resp B/P (MAP) Pulse Ox O2 Delivery O2 Flow Rate FiO2 09/13/25 05:00 97.9 98 16 135/68 (90) 90 97.9 09/12/25 20:00 Room Air* 0 21 Total Intake and Output 09/12/25 09/12/25 09/13/25 15:00 23:00 07:00 Intake Total 50 ml 500 ml Output Total 600 ml Balance 50 ml -100 ml medications Current Medications Medications Dose Ordered Sig/Keyana Route Start Time Stop Time Status Last Admin Dose Admin Acetaminophen 650 mg Q6HP PRN PO 09/08/25 11:00 Acetaminophen/ Hydrocodone Bitart 1 tab Q4HP PRN PO 09/08/25 11:00 09/11/25 17:38 1 TAB Enoxaparin Sodium 40 mg DAILY SC 09/09/25 10:00 09/12/25 10:09 40 MG Doxycycline Hyclate 100 ml @ 50 mls/hr BID IV 09/08/25 11:38 09/12/25 21:23 50 MLS/HR Ceftriaxone Sodium 50 ml @ 100 mls/hr DAILY@0900 IV 09/09/25 09:00 09/13/25 09:26 100 MLS/HR Guaifenesin/ Dextromethorphan 10 ml DAILY PO 09/08/25 13:00 Hold Levalbuterol HCl 1.25 mg Q6HR NEB 09/08/25 12:00 09/12/25 19:20 1.25 MG Ipratropium [place] 0.5 mg Q6HR NEB 09/08/25 12:00 09/12/25 19:20 0.5 MG Ergocalciferol 50,000 unit Q7D PO 09/09/25 09:30 09/09/25 10:29 50,000 UNIT Lisinopril 30 mg DAILY PO 09/11/25 10:00 09/12/25 10:08 30 MG Hydrochlorothiazide 25 mg DAILY PO 09/11/25 10:00 09/12/25 10:08 25 MG Examination General Appearance: Alert, Cooperative. Not in acute distress, On 3 liter/MIN by nasal canula. Head Exam: Normal inspection Neck Exam: Normal inspection. Non-tender. Normal alignment Pulmonary/Respiratory: Bilateral mild rhonchus on the mid lobes and lung bases. Cardiovascular/Chest: Regular rate and rhythm. No murmurs. No JVD. Peripheral Pulses: 2+ Radial (R). 2+ Radial (L). 2+ Pedal (R). 2+ Pedal (L) Abdominal Exam: Normal bowel sounds. Soft. normal abdomen, no visible veins, Nontender. No hepatosplenomegaly. No masses Ankle Exam: Negative ankle edema Lower extremities: Negative lower extremity edema Neuro/Mental Status: A&O x3. Coherent. Thoughts/Psych: Normal thought pattern. Appropriate mood and affect. Skin Exam: Normal inspection. Normal color. Warm. Dry laboratory and microbiology Laboratory Tests 09/13/25 05:00 Test 09/13/25 05:00 Range/Units Serum Glucose 93 74-106 mg/dL Microbiology Date/Time Source Procedure Growth Status 09/08/25 09:10 Blood Blood Culture - Final NO GROWTH AFTER 5 DAYS OF INCUBATION. Complete Labs and/or images reviewed: Labs reviewed by me, Image(s) reviewed by me Problem List/Assessment/Plan Problem List/Assessment/Plan # Acute hypoxic respiratory failure, likely due to COPD exacerbation, on 3 L by nasal cannula # Acute community acquired pneumonia, likely bacterial, Gram-positive/Gram-negative # PE, ruled out # NSTEMI, likely type 2 -D-dimer >35.2 -CT angio- negative for PE, cholelithiasis, dilated common duct 13 mm, multiple lytic lesions likely multiple myeloma or metastatic disease,3.8 cm right lower lobe air-filled cavity. -echo: reported LVEF 60% -cardiology consult- Cardiolite stress test- positive for ischemia in inferior wall, left heart cath negative, no stenosis -ipratropium and levalbuterol med nebs q6hrs prn -IV ceftriaxone 1 g daily and doxycycline IV b.i.d. -calcium level 12.2, creatinine 1.4, ALP 426, LDH 399 -ordered protein electrophoresis, pending #DVT Ruled out #Superficial thrombus possibly seen in LLE SSV -Conservative management due to superficial thrombus. -monitoring symptoms of DVT. -DVT prophylaxis. #Possible multiple myeloma- Continue outpatient workup , refer to hem/onc -Will refer patient for outpatient workup with Dr. Gamaliel Hoang at [facility]. #Chronic Hypertensive heart disease with possible systolic/diastolic failure -lisinopril 30 mg p.o. daily and hydrochlorothiazide 25 mg p.o. daily #Acute Hyperbilirubinemia -Liver US- gallbladder is filled with shadowing stones with Gallbladder wall thickening, dilated CBD at 9mm with Mildly echogenic liver parenchyma -Improving. #Acute Hypokalemia -replenished -K:3.3 -50 mEq potassium po today 09/13/25 #Acute Hypernatremia -Na: 147 on 09/13/25 -D5W -Monitoring #Acute hypercalcemia -13.5 -D5W 50cc/hr once. -Monitor levels -Telemetry. # Mixed hyperlipidemia - patient counseled about healthy lifestyle modifications and dietary changes # Vitamin D deficiency -vitamin-D 37226 units po weekly DVT prophylaxis: Lovenox 40mg daily sc Code Status: full code. Plan discussed with patient. Plan discussed with Dr Estrada Plan discussed with: Patient, Other (RN) My Orders My Orders Orders - ANDREA GARCIA Procedure Category Date Status Time Pt Request For Service PT 09/13/25 Logged 09:48 Dietary Evaluation Review Comments: Cardiac diet Nephrology consult Expected Outcomes/Goals: avoid nephrotic symdrome Date of Service: Sep 13, 2025 Billing Provider: SILVIA ESTRADA MD Common Visit Codes: [id number] INP/OBS CARE(HIGH) ANDREA GARCIA RESIDENT Sep 13, 2025 10:12 SILVIA ESTRADA MD Sep 15, 2025 07:19
[2025-09-13] MEDS ORDERED: POTASSIUM EFFERVESENT TAB 25 MEQ PO ONE (10:15)
[2025-09-13] MEDS ORDERED: ERGO1CAP23 PO (10:34)
[2025-09-13] MEDS ORDERED: LISI20TA56 PO (10:34)
[2025-09-13] MEDS ORDERED: HYDR25TA5 PO (10:34)
[2025-09-13] MEDS ORDERED: SODIUM CHLORIDE 0.9% 1,000 ML IV SCH (12:15)
[2025-09-13] MEDS: D5W 5% 1,000 ML IV ONE (13:00)
[2025-09-13] MEDS ORDERED: D5W/SOD CHL 0.2% 1,000 ML IV SCH (13:00)
[2025-09-13 15:51] LABS: Chloride 104 mmol/L (98-107); Potassium 3.6 mmol/L (3.5-5.1)
[2025-09-13 15:53] LABS: Anion Gap 13 (5-15)
[2025-09-13 15:58] LABS: Calcium 12.4 mg/dL (8.7-10.4); Carbon Dioxide 31 mmol/L (20-31); Glucose 123 mg/dL (74-106); Sodium 148 mmol/L (136-145)
[2025-09-13 16:10] LABS: BUN/Creatinine Ratio 27.3 (10.0-20.0)
[2025-09-13 16:19] LABS: Blood Urea Nitrogen 41 mg/dL (9-23)
--- NOTE | 2025-09-13 21:52 | DVHPN2 ---
Progress Note - Dictate Date Seen: Sep 13, 2025 Has the PT tested + for MRSA If YES, has PT been informed?: No Medical Necessity Reason Pt with a Central, PICC or Fol: No Subjective Patient was seen and evaluated in follow up. Patient is complaining of generalized discomfort. Home O2 was delivered at bedside. NA 147, K 3.3, BUN 24, INSURANCE CLERK 1.41, CA 13.5. Telemetry reviewed. vital signs Vital Sign Date Time Temp Pulse Resp B/P (MAP) Pulse Ox O2 Delivery O2 Flow Rate FiO2 09/13/25 13:00 99.1 104 18 140/68 (92) 90 99.1 09/13/25 12:48 Nasal Cannula 2.0 09/13/25 12:48 28 Total Intake and Output 09/12/25 09/12/25 09/13/25 15:00 23:00 07:00 Intake Total 50 ml 500 ml Output Total 600 ml Balance 50 ml -100 ml medications Current Medications Medications Dose Ordered Sig/Keyana Route Start Time Stop Time Status Last Admin Dose Admin Acetaminophen 650 mg Q6HP PRN PO 09/08/25 11:00 Acetaminophen/ Hydrocodone Bitart 1 tab Q4HP PRN PO 09/08/25 11:00 09/11/25 17:38 1 TAB Enoxaparin Sodium 40 mg DAILY SC 09/09/25 10:00 09/13/25 10:31 40 MG Doxycycline Hyclate 100 ml @ 50 mls/hr BID IV 09/08/25 11:38 09/13/25 10:28 50 MLS/HR Ceftriaxone Sodium 50 ml @ 100 mls/hr DAILY@0900 IV 09/09/25 09:00 09/13/25 09:26 100 MLS/HR Guaifenesin/ Dextromethorphan 10 ml DAILY PO 09/08/25 13:00 Hold Levalbuterol HCl 1.25 mg Q6HR NEB 09/08/25 12:00 09/13/25 12:48 1.25 MG Ipratropium [place] 0.5 mg Q6HR NEB 09/08/25 12:00 09/13/25 12:48 0.5 MG Ergocalciferol 50,000 unit Q7D PO 09/09/25 09:30 09/09/25 10:29 50,000 UNIT Lisinopril 30 mg DAILY PO 09/11/25 10:00 09/13/25 10:29 30 MG Hydrochlorothiazide 25 mg DAILY PO 09/11/25 10:00 09/13/25 10:29 25 MG objective GENERAL: Alert and oriented x 3. No acute distress. EYES: PERRL, EOMI. Anicteric. HENT: Moist mucous membranes. LUNGS: Clear to auscultation bilaterally. CARDIOVASCULAR: Regular rate and rhythm. ABDOMEN: Soft, nontender and nondistended. EXTREMITIES: No edema. NEUROLOGIC: No focal neurological deficits. SKIN: Warm, dry. Past surgical scars. laboratory and microbiology Laboratory Tests 09/13/25 05:00 Test 09/13/25 05:00 Range/Units Serum Glucose 93 74-106 mg/dL Problem List NSTEMI likely type 2. Acute hypoxic respiratory failure. Possible COPD exacerbation. Possible G+/- PNA. Ruled out structural heart disease. Assessment/Plan Continued all current supportive medical care. Tylenol for pain management. IV antibiotics as ordered. DVT prophylactics. Lisinopril. HCTZ. Additional plan as per the hospital course. Dietary Evaluation Review Comments: Cardiac diet Nephrology consult Expected Outcomes/Goals: avoid nephrotic symdrome Plan discussed with: Patient QAMAR WALTON MD Sep 13, 2025 15:38
[2025-09-14] VITALS (14 sets, daily range): BP systolic 140–154; BP diastolic 68–71; PULSE 76–108; RESP 14–20; TEMP 36.5; O2SAT 90–97
[2025-09-14 06:13] LABS: Anion Gap 14 (5-15); Chloride 106 mmol/L (98-107)
[2025-09-14 06:15] LABS: Calcium 12.5 mg/dL (8.7-10.4); Carbon Dioxide 31 mmol/L (20-31); Potassium 3.3 mmol/L (3.5-5.1); Sodium 151 mmol/L (136-145)
[2025-09-14 06:19] LABS: BUN/Creatinine Ratio 24.4 (10.0-20.0); Blood Urea Nitrogen 33 mg/dL (9-23); Glucose 97 mg/dL (74-106)
[2025-09-14 07:07] LABS: Albumin 3.2 g/dL (2.9-4.4); Alpha-1-Globulin 0.3 g/dL (0.0-0.4); Alpha-2-Globulin 0.8 g/dL (0.4-1.0); Gamma Globulin 1.2 g/dL (0.4-1.8)
--- NOTE | 2025-09-14 10:33 | ECG ---
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
--- NOTE | 2025-09-14 11:22 | DVHDSRES ---
Discharge Summary Date of Admission Resident Creating Document: ANDREA GARCIA RESIDENT Sep 08, 2025 at 10:57 Date of Discharge: Sep 14, 2025 Admitting Diagnosis Acute hypoxic Respiratory failure PNA Labs/Diagnostic Data: Laboratory Results Test 09/14/25 04:55 09/13/25 05:00 09/11/25 06:14 09/10/25 13:15 Sodium Level 151 mmol/L (136-145) Potassium Level 3.3 mmol/L (3.5-5.1) Chloride Level 106 mmol/L (98-107) Carbon Dioxide Level 31 mmol/L (20-31) Anion Gap 14 (5-15) Blood Urea Nitrogen 33 mg/dL (9-23) Creatinine 1.35 mg/dL (0.700-1.30) Glomerular Filtration Rate Calc 55 mL/min (>90) BUN/Creatinine Ratio 24.4 (10.0-20.0) Serum Glucose 97 mg/dL (74-106) Calcium Level 12.5 mg/dL (8.7-10.4) White Blood Count 8.8 10^3/uL (4.4-10.8) Red Blood Count 4.05 10^6/uL (4.5-5.90) Hemoglobin 13.3 g/dL (13.5-17.5) Hematocrit 37.3 % (41.0-53.0) Mean Corpuscular Volume 92.0 fL (80.0-100.0) Mean Corpuscular Hemoglobin 32.8 pg (28.0-32.0) Mean Corpuscular Hemoglobin Concent 35.7 g/dL (32.0-36.0) Red Cell Distribution Width 14.2 % (11.8-14.3) Platelet Count 166 10^3/uL (140-450) Mean Platelet Volume 7.6 fL (6.9-10.8) Neutrophils (%) (Auto) 62.7 % (37.0-80.0) Lymphocytes (%) (Auto) 10.8 % (10.0-50.0) Monocytes (%) (Auto) 6.4 % (0.0-12.0) Eosinophils (%) (Auto) 19.4 % (0.0-7.0) Basophils (%) (Auto) 0.7 % (0.0-2.0) Neutrophils # (Auto) 5.5 10 ^3/uL (1.6-8.6) Lymphocytes # (Auto) 1.0 10 ^3/uL (0.4-5.4) Monocytes # (Auto) 0.6 10 ^3/uL (0-1.3) Eosinophils # (Auto) 1.7 10 ^3/uL (0-0.8) Basophils # (Auto) 0.1 10 ^3/uL (0-0.2) Nucleated Red Blood Cells 0.1 % Magnesium Level 2.0 mg/dL (1.6-2.6) Differential Total Cells Counted 100.0 (100) Neutrophils % (Manual) 60 (37.0-80.0) Band Neutrophils % (Manual) 2 Lymphocytes % (Manual) 16 (10.0-50.0) Monocytes % (Manual) 9 (0-12) Eosinophils % (Manual) 13 (0-7) Basophils % (Manual) 0 (0.0-2.0) Metamyelocytes % (manual) 0 Myelocytes % (Manual) 0 Promyelocytes % (Manual) 0 Blast Cells % (Manual) 0 Reactive Lymphocytes 0 Platelet Estimate Adequate Blood Gas Specimen Type Arterial Blood Gas Sample Site Right radial Blood Gas Patient Temperature 37.0 Arterial Blood Date Drawn Arterial Blood pH 7.505 (7.350-7.450) Arterial Blood Partial Pressure CO2 34.4 mmHg (35.0-48.0) Arterial Blood Partial Pressure O2 44.6 mmHg (83.0-108.0) Arterial Blood HCO3 26.5 mmol/L (21.0-28.0) Arterial Blood Oxygen Saturation 82.0 % (94.0-98.0) Arterial Blood Base Excess 3.7 mmol/L (-2.0-3.0) Arterial Blood Oxyhemoglobin 80.3 % (94.0-98.0) Arterial Blood Carboxyhemoglobin 1.7 % (0.5-1.5) Arterial Blood Methemoglobin 0.4 % (0.0-1.5) Stevie Test Yes Blood Gas Total Hemoglobin 14.20 g/dL (13.5-17.5) Blood Gas Modality Room air FiO2 % 21.0 Blood Gas Critical Value Read Back Yes Blood Gas Notified Whom hammad Lagunas md Blood Gas Notified Time [id number] Blood Gas Notified By ugo Ricardo tight rope walker Test 09/10/25 05:51 09/09/25 16:48 09/09/25 15:14 09/09/25 07:42 Total Bilirubin 1.1 mg/dL (0.2-1.0) Aspartate Amino Transferase (AST) 33 U/L (13-40) Alanine Aminotransferase (ALT) 21 U/L (7-40) Alkaline Phosphatase 405 U/L (46-116) Total Protein 6.7 g/dL (5.7-8.2) Albumin 3.8 g/dL (3.2-4.8) Prothrombin Time 13.0 sec (9.3-11.8) Prothrombin Time INR 1.25 (0.9-1.15) Activated Partial Thromboplast Time 36.9 SEC (24.5-34.5) Hepatitis A Antibody Total Positive (Negative) Hepatitis B Surface Antigen Negative (Negative) Hepatitis B Surface Antibody Negative (Negative) Hepatitis B Core Total Antibody Negative (Negative) Hepatitis C Antibody Negative (Negative) Serum Immunoglobulin G 1298 mg/dL (603-1613) Globulin (PEP) 3.4 g/dL (2.2-3.9) Albumin/Globulin Ratio 0.9 (0.7-1.7) Oaali-2-Sndkfbzkn 0.3 g/dL (0.0-0.4) Vmukc-4-Iwypfpwcl 0.8 g/dL (0.4-1.0) Beta Globulins 1.1 g/dL (0.7-1.3) Gamma Globulins 1.2 g/dL (0.4-1.8) Protein Electrophoresis M-Manjinder 0.5 g/dL (Not Observed) Protein Electrophoresis Note Comment (.) Immunoglobulin A 216 mg/dL (61-437) Immunoglobulin M 87 mg/dL (15-143) Lactate Dehydrogenase 399 U/L (120-246) Vitamin B12 Level 958 pg/mL (211-911) Vitamin D 25-Hydroxy 18.5 ng/mL (30.0-100) Free Thyroxine (T4) Calculated 1.24 ng/dL (0.89-1.76) Free Triiodothyronine (T3) pg/mL 3.51 pg/mL (2.3-4.2) Test 09/09/25 00:57 09/08/25 13:21 09/08/25 12:07 09/08/25 09:48 Urine Color Yellow (Yellow) Urine Clarity Clear (Clear) Urine pH 5.5 (5.0-9.0) Urine Specific [place] > 1.050 (1.001-1.035) Urine Protein 1+ (Negative) Urine Ketones Negative (Negative) Urine Blood 1+ /uL (Negative) Urine Nitrite Negative (Negative) Urine Bilirubin Negative (Negative) Urine Urobilinogen Normal mg/dL (Negative) Urine Leukocyte Esterase Negative /uL (Negative) Urine RBC 4 /hpf (0 - 3) Urine Microscopic WBC 3 /HPF (0-3) Urine Squamous Epithelial Cells Few /hpf (<5) Urine Bacteria None seen /hpf (None Seen) Urine Hyaline Casts Few /lpf (0 - 2) Urine Mucus Few (None Seen) Urine Glucose Normal mg/dL (Normal) Urine Opiates Screen Neg (NEGATIVE) Urine Fentanyl Screen Neg (NEGATIVE) Urine Barbiturates Screen Neg (NEGATIVE) Urine Phencyclidine Screen Neg (NEGATIVE) Urine Amphetamines Screen Neg (NEGATIVE) Urine Benzodiazepines Screen Neg (NEGATIVE) Urine Cocaine Screen Neg (NEGATIVE) Urine Cannabinoids Screen Neg (NEGATIVE) D-Dimer, Quantitative > 35.20 mg/L FEU (0.0-0.49) Thyroid Stimulating Hormone (TSH) 0.28 uIU/mL (0.55-4.78) Troponin I High Sensitivity 123 ng/L (</=54) Triglycerides Level 181 mg/dL (< 150) Cholesterol Level 203 mg/dL (< 200) LDL Cholesterol 125 mg/dL (< 100) HDL Cholesterol 55 mg/dL (40-59) Test 09/08/25 09:33 09/08/25 08:57 09/08/25 08:51 POC Glucose 115 mg/dl (70-106) Influenza Type A Antigen Negative (Negative) Influenza Type B Antigen Negative (Negative) SARS-CoV-2 Antigen (Rapid) Negative (NEGATIVE) Hemoglobin A1c 5.5 % A1C (<5.7) Lactic Acid Level 2.0 mmol/L (0.4-2.0) B-Type Natriuretic Peptide 74.31 pg/mL (0-100) Other Laboratory Tests 09/14/25 04:55 09/13/25 05:00 Brief Hx & Hospital Course: Sammie Rizvi is a 74-year old male patient, with past medical history of hypertension who presented to the ED after a syncopal episode. The patient reported having shortness of breath and cough with sputum production, whitish in color since the last 8-9 weeks. He reported that the shortness of breath increased on lying down and became better on sitting up. The patient reported going to the urgent care for the same, when he was told he has bronchitis and was sent home on oral antibiotics and steroids. He was due to see Dr. Rivero, dye machine tender for his 1st appointment with him yesterday. He reports feeling weak, dizzy and losing consciousness while urinating but recovered consciousness within 30 seconds and was able to recall the entire event. He mentions having decreased appetite in the last 1 week. He denied any chest pain, fever, chills or weight loss. The patient was on 3 L of oxygen through nasal cannula. Troponins were slightly elevated at 69-89. Echo showed LVEF 60% with moderate AR. CXR no acute intrathoracic abnormality. CT head- No intracranial hemorrhage or mass effect. Mild global cerebral volume loss. Mild chronic microvascular ischemic changes. Right maxillary sinus disease. Cardiolite stress test- Stress ECG Conclusion. inferior wall reversible defect. abnormal study. apical defect. 1mm st depressions in inferior leads. LVEF 53%. . No right or left femoropopliteal venous thrombosis.Techs comments negative for DVT. Thrombus possibly seen in LLE SSV. CT angio chest revealed- Moderate left lower lobe atelectasis. 3.8 cm right lower lobe air-filled cavity. Cholelithiasis with dilated 13 mm common duct. Please correlate with laboratory values and consider MRCP if warranted. Innumerable lytic lesions throughout the imaged skeletal structures. Differential includes multiple myeloma, metastatic disease, and an abnormal a metabolic process. Ultrasound of the liver revealed- The gallbladder is filled with shadowing stones. Gallbladder wall thickening. No sonographic whyte's sign. The common bile duct is mildly dilated at 9 mm. Recommend further evaluation with MRCP. Mildly echogenic liver parenchyma. This may be secondary to steatosis or another diffuse hepatic process. Correlate clinically and with liver function tests. During hospital course Cardiolite stress test came back positive for ischemia in inferior wall. The patient will get angiogram on 09/12/[address] Vora. Patient had elevated blood pressure, for which he was started on lisinopril 30 mg p.o. and hydrochlorothiazide 25 mg p.o. once daily. Patient was explained about the possible diagnosis of multiple myeloma and he demonstrated understanding of the same. Patient is a heart catheterization on 09/11/2025, no severe coronary artery disease. Physical therapy evaluation was done, recommendation was for SNF but patient refused. Patient is being discharged home with the home health for physical therapy. Patient is also being provided with front wheel walker and 3 in 1. Patient advised outpatient workup with Dr. Gamaliel Hoang at [facility] for further evaluation for possible multiple myeloma and also lung malignancy cavitary lesion in the lung. Patient qualify for home oxygen due to hypoxia, patient is also being discharged home with the home oxygen. Patient and family was also advised to follow up at the discharge clinic, with PCP. Also follow up with the surgeon for cholelithiasis for further management and care Patient was prescribed levofloxacin 750 mg p.o. daily for 7 days on discharge. Patient's meds were sent to the pharmacy electronically. Patient was hemodynamically stable on discharge. Operations or Procedures [place] [id number] Ph: [phone] DIAGNOSTIC IMAGING Diagnostic Imaging Report : [id number] Signed PATIENT: SAMMIE NAGEL ACCT: [id number] UNIT: [id number] : 1950 LOC: ER ROOM / BED: / AGE / SEX: 74 / M ADM STATUS: REG ER SERVICE 0839 ORDERING PHYSICIAN: BERTHA HENDERSON MD PROCEDURE(s): CXRP - CHEST PORTABLE REASON: syncope ORDER NUMBER(s): [id number], ACCESSION NUMBER(s): [id number] CHEST PORTABLE, HISTORY: syncope COMPARISON: XR CHEST 2 VIEWS on DOS: 08/16/25 XR CHEST 2 VIEWS on DOS: 08/16/25 TECHNICAL DATA: 1 view of the chest was obtained. FINDINGS: Lines and tubes: None Cardiomediastinal silhouette: Prominent Pulmonary vasculature: normal Lung expansion: low Lung airspace: normal Lung interstitium: normal Pleura: normal Pneumothorax: no Bones: Unremarkable Other: no IMPRESSION: No acute intrathoracic abnormality. ATED BY: VASQUEZ COLLAZO MD DICTATED DATE/TIME: 09/08/25925 SIGNED BY: VASQUEZ COLLAZO MD SIGNED DATE/TIME: 09/08/25925 CC: [place] [id number] Ph: [phone] DIAGNOSTIC IMAGING Diagnostic Imaging Report : [id number] Signed PATIENT: SAMMIE NAGEL ACCT: [id number] UNIT: [id number] : 1950 LOC: OVERFLOW ROOM / BED: [facility]-ER / A AGE / SEX: 74 / M ADM STATUS: ADM IN SERVICE 8 ORDERING PHYSICIAN: BERTHA HENDERSON MD PROCEDURE(s): HWOCT - HEAD WITHOUT CONTRAST REASON: syncope ORDER NUMBER(s): [id number], ACCESSION NUMBER(s): [id number] CT HEAD WITHOUT CONTRAST Indication: syncope EXAM DATE: 09/08/2025 11:46 AM COMPARISON: None TECHNIQUE: CT of the head without intravenous contrast. RADIATION DOSE: CTDIvol: 69 mGy, DLP: 1366 mGy*cm FINDINGS: There is no intracranial hemorrhage. There is no extra-axial fluid, mass, mass effect or midline shift. The ventricles are midline and normal in size. Basilar cisterns are patent. There is mild global cerebral volume loss. Mild periventricular and subcortical white matter chronic microvascular ischemic changes. Mastoids well pneumatized. Right maxillary sinus disease and mucoperiosteal thickening.. Imaged portion of the orbits are unremarkable. IMPRESSION: No intracranial hemorrhage or mass effect. Mild global cerebral volume loss. Mild chronic microvascular ischemic changes. Right maxillary sinus disease. ATED BY: EDUARDA HUTCHISON MD DICTATED DATE/TIME: 09/08/251220 SIGNED BY: EDUARDA HUTCHISON MD SIGNED DATE/TIME: 09/08/251220 CC: Condition at Discharge: Stable Final Diagnosis/Problems List # Acute hypoxic respiratory failure, likely due to COPD exacerbation, ordered home oxygen # Acute community acquired pneumonia, likely bacterial, Gram-positive/Gram-negative # PE, ruled out # NSTEMI, likely type 2 #DVT Ruled out #Superficial thrombus possibly seen in LLE SSV #Possible multiple myeloma- Continue outpatient workup , refer to [facility] #Chronic Hypertensive heart disease with possible systolic/diastolic failure #Acute Hyperbilirubinemia #Acute Hypokalemia #Acute Hypernatremia #Acute hypercalcemia # Mixed hyperlipidemia # Vitamin D deficiency # cholelithiasis, no cholecystitis Discharge Disposition: Home with Health Services Discharge Instruct/Medications Diet: Cardiac 2g Na,low cholest, Renal Activity comment: Please use walker when walking to avoid Follow Up/Referral: Follow up with the PCP Follow up in the discharge clinic Follow up with Dr. Gamaliel Hoang at [facility] for further evaluation for possible multiple myeloma and also rule out lung malignannt lesion in the lung Medications: Levofloxacin and others meds as prescribed Scheduled Ergocalciferol (Vitamin D 79480 Unit), 50,000 UNIT PO Q7D Ergocalciferol (Vitamin D 32809 Unit), 50,000 UNIT PO Q7D Hctz (Hydrochlorothiazide), 25 MG PO DAILY Hctz (Hydrochlorothiazide), 25 MG PO DAILY Levofloxacin Hemihydrate (Levofloxacin), 1.5 TAB PO DAILY Lisinopril (Lisinopril), 20 MG PO DAILY Lisinopril (Lisinopril), 20 MG PO DAILY Discharge Statement: "Patient was advised to return to the ER or call 911 if any headaches, dizziness, shortness of breath, chest pain, abdominal pain, bleeding, fevers, or worsening of medical condition. Patient was counseled about treatment plan, medications, possible side effects, patientverbalized understanding. All questions were answered to the best of my ability. This discharge took greater then 30 minutes in planning, reviewing documentation, counseling the patient, and discussing with other team members." ASSESSMENT ASSESSMENT Assessment Date of Service: Sep 14, 2025 Billing Provider: DIOMEDES DUMONT DO Common Visit Codes: 08347-EEE/OBS DISCH DAY >30min ADOLFO SHINE Sep 14, 2025 11:22 DIOMEDES DUMONT DO Sep 17, 2025 13:27
[2025-09-14] MEDS ORDERED: LEVO500T91 PO (11:43)
[2025-09-14] MEDS: POTASSIUM CHL 20 Meq TABLET PO ONE (12:54)
[2025-09-14] MEDS ORDERED: SOD CHL 0.45% 1,000 ML IV ONE (16:15)
--- NOTE | 2025-09-15 00:06 | DVHPN2 ---
Progress Note - Dictate Date Seen: Sep 14, 2025 Has the PT tested + for MRSA If YES, has PT been informed?: No Medical Necessity Reason Pt with a Central, PICC or Fol: No Subjective Patient was seen and evaluated in follow up. Patient has no new complaints at this time. Patient denies any cardiac symptoms. Patient is cardiac stable for discharge. Telemetry reviewed. vital signs Vital Sign Date Time Temp Pulse Resp B/P (MAP) Pulse Ox O2 Delivery O2 Flow Rate FiO2 09/14/25 15:20 97 20 141/68 93 3.0 32 09/14/25 13:47 36.5 09/14/25 12:51 Nasal Cannula* objective GENERAL: Alert and oriented x 3. No acute distress. EYES: PERRL, EOMI. Anicteric. HENT: Moist mucous membranes. LUNGS: Clear to auscultation bilaterally. CARDIOVASCULAR: Regular rate and rhythm. ABDOMEN: Soft, nontender and nondistended. EXTREMITIES: No edema. NEUROLOGIC: No focal neurological deficits. SKIN: Warm, dry. Past surgical scars. laboratory and microbiology Laboratory Tests 09/14/25 04:55 09/13/25 05:00 Test 09/14/25 04:55 Range/Units Serum Glucose 97 74-106 mg/dL Problem List NSTEMI likely type 2. Acute hypoxic respiratory failure. Possible COPD exacerbation. Possible G+/- PNA. Ruled out structural heart disease. Assessment/Plan Continued all current supportive medical care. Tylenol for pain management. IV antibiotics as ordered. DVT prophylactics. Lisinopril. HCTZ. Additional plan as per the hospital course. Dietary Evaluation Review Comments: Cardiac diet Nephrology consult Expected Outcomes/Goals: avoid nephrotic symdrome Plan discussed with: Patient QAMAR WALTON MD Sep 15, 2025 00:06
== END 2025-09-14 16:15 | disposition home health service (06) | DRG 177 ==
LOC: EDBD 08:24 → ER 08:24 → OVERFLOW 10:57 → WEST WING 22:28 → TELE-WESTW 09-11 20:20
PROVIDERS: ADMIT Internal Medicine; ATTEND Internal Medicine
PROC: 4A023N7 Measurement of Cardiac Sampling and Pressure, Left Heart, Percutaneous Approach (ICD-10-PCS; principal; 2025-09-11)
PROC: B211YZZ Fluoroscopy of Multiple Coronary Arteries using Other Contrast (ICD-10-PCS; 2025-09-11)
DX: J15.69 Pneumonia due to other Gram-negative bacteria (principal); I21.A1 Myocardial infarction type 2; J96.01 Acute respiratory failure with hypoxia; E87.0 Hyperosmolality and hypernatremia; C90.00 Multiple myeloma not having achieved remission; N17.9 Acute kidney failure, unspecified; J15.9 Unspecified bacterial pneumonia; I50.42 Chronic combined systolic (congestive) and diastolic (congestive) heart failure; J44.1 Chronic obstructive pulmonary disease with (acute) exacerbation; I11.0 Hypertensive heart disease with heart failure; I82.812 Embolism and thrombosis of superficial veins of left lower extremity; Z20.822 Contact with and (suspected) exposure to COVID-19; E87.6 Hypokalemia; I25.10 Atherosclerotic heart disease of native coronary artery without angina pectoris; K80.20 Calculus of gallbladder without cholecystitis without obstruction; E78.5 Hyperlipidemia, unspecified; E83.52 Hypercalcemia; E80.6 Other disorders of bilirubin metabolism; Z87.891 Personal history of nicotine dependence
CPT/HCPCS: 36415; 36600; 70450; 71045; 71275; 76705; 78452; 80048; 80053; 80061; 80307; 81001; 82306; 82607; 82784; 82805; 82962; 83036; 83605; 83615; 83735; 83880; 84155; 84165; 84439; 84443; 84481; 84484; 85007; 85025; 85027; 85379; 85610; 85730; 86334; 86704; 86706; 86708; 86803; 87040; 87340; 87426; 87804; 93005; 93017; 93306; 93458; 93970; 94640; 96365; 97110; 97116; 97163; 97530; G0378; J2250; Q9967